=== PATIENT | male | born 1955 | race Caucasian/White ===

== ENCOUNTER 2017-12-29 03:39 | Inpatient (IN) | payer OTHER ==
[2017-12-25 14:08] VITALS: BP 136/87
[2017-12-25 15:35] LABS: BILIRUBIN 1+ (NEGATIVE); BLOOD NEGATIVE (NEGATIVE); CLARITY CLEAR (CLEAR); COLOR YELLOW (YELLOW); GLUCOSE NEGATIVE (NEGATIVE); KETONE TRACE (NEGATIVE); LEUKO ESTERASE NEGATIVE (NEGATIVE); NITRITE NEGATIVE (NEGATIVE); PH 5.5 (5.0-9.0); SPECIFIC GRAVITY >= 1.030 (1.005-1.030); UROBILINOGEN 0.2 E.U./dl (0.2-1.0)
[2017-12-25 15:39] LABS: BASO % 0.3 % (0.0-1.0); EOS # 0.1 10*3/uL (0.0-0.4); EOS % 0.9 % (1.0-4.0); HEMATOCRIT 46.2 % (42.0-52.0); HEMOGLOBIN 14.8 g/dl (14.0-18.0); LYMPH # 1.1 10*3/uL (1.3-4.4); LYMPH % 13.9 % (27.0-41.0); MEAN CELL VOLUME 90.4 fl (80.0-94.0); MONO # 0.8 10*3/uL (0.1-1.0); MONO % 10.5 % (3.0-9.0); NEUT # 5.7 10*3/uL (2.3-7.9); NEUT % 74.1 % (47.0-73.0); PLATELET COUNT AUTOMATED 201 10*3/uL (130-400); RED BLOOD COUNT 5.11 10*6/uL (4.50-5.90); RED CELL DISTRI WIDTH 15.2 % (0-14.5); WHITE BLOOD COUNT 7.7 10*3/uL (4.8-10.8)
[2017-12-25 15:47] LABS: BACTERIA TRACE
[2017-12-25 16:07] LABS: ALBUMIN 3.8 gm/dl (3.1-4.5); ALKALINE PHOSPHATASE 81 U/L (45-117); BILIRUBIN, DIRECT 0.2 mg/dL (0.0-0.2); BUN 18 mg/dl (7-24); CHLORIDE 108 mmol/L (98-107); SGOT/AST 23 IU/L (3-35); SGPT/ALT 34 U/L (12-78); SODIUM 142 mmol/L (136-145); TOTAL PROTEIN 7.1 gm/dL (6.4-8.2)
[2017-12-25 16:10] LABS: ACT PARTIAL THROMBO TIME 22.3 SECONDS (20.8-31.5)
[2017-12-26 10:56] LABS: CEA 2.4 ng/mL
[~2017-12-29] VITALS: Ht 185.4 cm; Wt 111.3 kg
[2017-12-29] VITALS (8 sets, daily range): BP systolic 97–124; BP diastolic 60–90
--- NOTE | ~2017-12-29 | O ---
[place], [place] OPERATIVE NOTE NAME: SIRIA GAGE [facility] #: [id number] UNIT #: [id number] ROOM: [place] [address] DOCTOR: LESTER PEPE MD BIRTHDATE: [birth year] DOS: 12/29/2017 PREOPERATIVE DIAGNOSIS: Sigmoid mass. POSTOPERATIVE DIAGNOSIS: Sigmoid mass. PROCEDURE: Partial sigmoid colectomy with intraoperative colonoscopy. SURGEON: Lester Pepe MD [employer] COORDINATOR: BHAVNA. ANESTHESIA: General with endotracheal intubation. INDICATIONS: This is a 62-year-old gentleman, who is here today for the procedure, this procedure is indicated for a large polyp that could not be removed endoscopically and a biopsy, which showed a high-grade dysplasia and therefore, it was decided to take the patient for the above-mentioned procedure. The procedure and its complications were explained to the patient in detail preoperatively. Complications that were discussed included, but were not limited to bleeding, infection, hematoma/seroma/abscess formation, anastomotic leak, anastomotic breakdown, damage to lying vital structures, inadvertent injury to surrounding vital structures, incisional hernia formation and prolonged abdominal pain. He agreed to proceed. DESCRIPTION OF PROCEDURE: After identifying the patient, the patient was brought to the operating suite and laid in the supine position. After induction of general anesthesia, the patient was placed in stirrups and the abdomen was painted and draped in the usual sterile fashion. Prior to starting the procedure and sigmoidoscopy was performed, which showed that the mass in question was at approximately 40 cm from the anal verge. At this point, the scope was withdrawn and the patient was placed in an appropriate position and the parts were then painted and draped in the usual sterile fashion. A midline incision was made. Skin and the subcutaneous tissue were incised in the line of the incision. The fascia was incised as well and the peritoneum was opened. The mass was identified by the tattoo that was seen and that was placed by the public utilities sales representative in question. At this point, the distal approximately 5 cm distal to the mass that was palpated, the sigmoid colon was divided with the help of a transverse stapler. Thereafter, the mesentery of the bowel needed to be resected, was taken down with the help of LigaSure device. Approximately 5 cm proximal to the mass, the colon was divided and the mesenteric dissection was completed with the help of LigaSure device and the specimen was removed, it was sent for histopathological diagnosis. Thereafter, hemostasis was confirmed, the anastomosis between the proximal and the distal ends were performed with the help of a LEONARDO stapler as well as a TA stapler. Sigmoidoscopy was then performed in order to visualize the anastomosis. This was found to be slightly narrow and therefore, the anastomosis was taken down and hand sewn anastomosis was performed with the help of 3-0 silk in interrupted fashion for the posterior seromuscular layer with the help of 3-0 PDS in a running fashion ([place]-type suturing). The anterior wall was also reinforced with the help of 3-0 silk in a [place], [place] OPERATIVE NOTE NAME: SIRIA GAGE UNIT #: [id number] ROOM: [place] [address] DOCTOR: LESTER PEPE MD BIRTHDATE: [birth year] running fashion. At this point, the scope was reintroduced and the anastomosis was visualized and it was found to be within normal limits with no bleeding. It was injected and there was no leak that could be identified after the placement of the anterior seromuscular suture. At this point, the omentum was brought down and placed over the anastomosis. Approximately 2 liters of saline was used for irrigation and after the irrigational fluid was sucked away, the fascia was approximated with the help of looped PDS in a running fashion. The skin edges and the subcutaneous tissue was irrigated with saline and approximated with the help of efra. Abdominal binder was placed on top of the dressing. The patient was then extubated uneventfully and brought back to the recovery room in stable fashion. There were no complications. Dr. Lester Pepe, the attending surgeon, was present throughout the operating case. Lester Pepe MD CM:OPRECORD:OPERATIVE NOTE [id number] LESTER PEPE MD 12/29/17 1703 interface
--- NOTE | ~2017-12-29 | PR ---
[place], [place] PROGRESS NOTE [id number] UN[facility] #: [id number] ROOM: 520 DOCTOR: IDRIS RODRIGUEZ MD BIRTHDATE: [birth year] DOS: SUBJECTIVE: The patient has been admitted to hospital with colon cancer and has resection of the sigmoid colon and he is recovering very satisfactorily. He is able to eat. He had bowel movement and no problem in passing urine and ambulating well. According to Dr. Pepe, the patient is doing good and he is being discharged today and he will be followed up in the office by Dr. Pepe and Dr. Rios. OBJECTIVE: HEART: Regular. CHEST: Clear. ABDOMEN: Soft. IDRIS RODRIGUEZ MD CM:PNTRANS [id number] IDRIS RODRIGUEZ MD 01/03/18 1446 interface
--- NOTE | ~2017-12-29 | EKG ---
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
[~2017-12-29 03:39] MED LIST: ALLOPURINOL300 MG PO; AMOXICILLIN500 M1 PO; AMOXICILLIN500 MG PO; ANTIVERT/2525 MG PO; ANTIVERT25 MG PO; ASPIRIN81 M1 PO; BIAXIN500 MG PO; CLARITIN10 MG PO; FLONASE 0.05% 121 EA NAS; LEVAQUIN750 MG PO; LIPITOR10 MG PO; NEXIUM40 MG PO; PREDNISONE20 MG PO; SYMB160 INH; TERAZOSIN HYDROC5 MG PO; VIBRAMYCIN100 MG PO; ZESTRIL20 MG PO; ZYRTEC10 MG PO
[2017-12-30] VITALS (18 sets, daily range): BP systolic 92–133; BP diastolic 57–80
[2017-12-30 05:02] LABS: ALKALINE PHOSPHATASE 56 U/L (45-117); BUN 20 mg/dl (7-24); CHLORIDE 108 mmol/L (98-107); CREATININE 1.33 mg/dL (0.70-1.30); POTASSIUM 4.3 mmol/L (3.5-5.1); SGOT/AST 16 IU/L (3-35); SGPT/ALT 26 U/L (12-78); SODIUM 142 mmol/L (136-145); TOTAL PROTEIN 5.6 gm/dL (6.4-8.2)
[2017-12-30 05:45] LABS: BASO % 0.1 % (0.0-1.0); HEMOGLOBIN 13.1 g/dl (14.0-18.0); LYMPH % 6.6 % (27.0-41.0); MEAN CELL VOLUME 90.7 fl (80.0-94.0); MEAN PLATELET VOLUME 10.5 fl (9.6-12.3); MONO # 1.2 10*3/uL (0.1-1.0); MONO % 7.7 % (3.0-9.0); NEUT # 13.1 10*3/uL (2.3-7.9); NEUT % 85.1 % (47.0-73.0); PLATELET COUNT AUTOMATED 182 10*3/uL (130-400); RED BLOOD COUNT 4.52 10*6/uL (4.50-5.90); RED CELL DISTRI WIDTH 15.2 % (0-14.5); WHITE BLOOD COUNT 15.4 10*3/uL (4.8-10.8)
[2017-12-31] VITALS (24 sets, daily range): BP systolic 91–135; BP diastolic 43–80
[2017-12-31 07:11] LABS: BASO % 0.2 % (0.0-1.0); EOS % 0.2 % (1.0-4.0); HEMATOCRIT 39.2 % (42.0-52.0); HEMOGLOBIN 12.8 g/dl (14.0-18.0); LYMPH # 1.1 10*3/uL (1.3-4.4); MEAN CELL VOLUME 89.5 fl (80.0-94.0); MEAN CORPUSCULAR HGB 29.2 pg (27.0-31.0); MEAN CORPUSCULAR HGB CONC 32.7 g/dl (33.0-37.0); MEAN PLATELET VOLUME 9.6 fl (9.6-12.3); MONO # 1.1 10*3/uL (0.1-1.0); MONO % 10.1 % (3.0-9.0); NEUT # 8.9 10*3/uL (2.3-7.9); NEUT % 78.9 % (47.0-73.0); PLATELET COUNT AUTOMATED 166 10*3/uL (130-400); RED BLOOD COUNT 4.38 10*6/uL (4.50-5.90); RED CELL DISTRI WIDTH 15.3 % (0-14.5); WHITE BLOOD COUNT 11.3 10*3/uL (4.8-10.8)
[2017-12-31 07:27] LABS: ALBUMIN 2.8 gm/dl (3.1-4.5); ALKALINE PHOSPHATASE 62 U/L (45-117); BUN 11 mg/dl (7-24); CHLORIDE 110 mmol/L (98-107); CREATININE 1.03 mg/dL (0.70-1.30); SGOT/AST 20 IU/L (3-35); SGPT/ALT 21 U/L (12-78); SODIUM 144 mmol/L (136-145); TOTAL PROTEIN 5.7 gm/dL (6.4-8.2)
[2018-01-01] VITALS (11 sets, daily range): BP systolic 117–149; BP diastolic 72–89
[2018-01-01 04:50] LABS: ALBUMIN 2.6 gm/dl (3.1-4.5); ALKALINE PHOSPHATASE 65 U/L (45-117); BUN 10 mg/dl (7-24); CHLORIDE 109 mmol/L (98-107); CREATININE 1.05 mg/dL (0.70-1.30); POTASSIUM 3.8 mmol/L (3.5-5.1); SGOT/AST 20 IU/L (3-35); SGPT/ALT 22 U/L (12-78); SODIUM 143 mmol/L (136-145); TOTAL PROTEIN 5.6 gm/dL (6.4-8.2)
[2018-01-01 06:19] LABS: BASO % 0.3 % (0.0-1.0); EOS # 0.1 10*3/uL (0.0-0.4); EOS % 0.7 % (1.0-4.0); HEMATOCRIT 38.4 % (42.0-52.0); HEMOGLOBIN 12.2 g/dl (14.0-18.0); LYMPH # 1.4 10*3/uL (1.3-4.4); MEAN CELL VOLUME 89.9 fl (80.0-94.0); MEAN CORPUSCULAR HGB 28.6 pg (27.0-31.0); MEAN CORPUSCULAR HGB CONC 31.8 g/dl (33.0-37.0); MEAN PLATELET VOLUME 10.6 fl (9.6-12.3); MONO # 1.3 10*3/uL (0.1-1.0); MONO % 13.4 % (3.0-9.0); NEUT # 6.9 10*3/uL (2.3-7.9); NEUT % 71.3 % (47.0-73.0); PLATELET COUNT AUTOMATED 184 10*3/uL (130-400); RED BLOOD COUNT 4.27 10*6/uL (4.50-5.90); RED CELL DISTRI WIDTH 15.3 % (0-14.5); WHITE BLOOD COUNT 9.6 10*3/uL (4.8-10.8)
[2018-01-02] VITALS: BP 141/91
[2018-01-02 06:49] LABS: BASO # 0.1 10*3/uL (0.0-0.1); BASO % 0.6 % (0.0-1.0); EOS # 0.2 10*3/uL (0.0-0.4); EOS % 2.1 % (1.0-4.0); HEMATOCRIT 40.8 % (42.0-52.0); HEMOGLOBIN 13.1 g/dl (14.0-18.0); LYMPH # 1.2 10*3/uL (1.3-4.4); LYMPH % 13.6 % (27.0-41.0); MEAN CELL VOLUME 89.7 fl (80.0-94.0); MEAN CORPUSCULAR HGB 28.8 pg (27.0-31.0); MEAN CORPUSCULAR HGB CONC 32.1 g/dl (33.0-37.0); MEAN PLATELET VOLUME 10.1 fl (9.6-12.3); MONO # 1.1 10*3/uL (0.1-1.0); MONO % 12.1 % (3.0-9.0); NEUT # 6.3 10*3/uL (2.3-7.9); NEUT % 71.2 % (47.0-73.0); PLATELET COUNT AUTOMATED 211 10*3/uL (130-400); RED BLOOD COUNT 4.55 10*6/uL (4.50-5.90); RED CELL DISTRI WIDTH 14.9 % (0-14.5); WHITE BLOOD COUNT 8.9 10*3/uL (4.8-10.8)
[2018-01-02 08:00] VITALS: BP 129/79
[2018-01-02 12:00] VITALS: BP 127/79
[2018-01-02 16:00] VITALS: BP 103/72; BP 127/68
[2018-01-02 20:00] VITALS: BP 115/66
[2018-01-03 00:56] VITALS: BP 138/88
[2018-01-03 08:00] VITALS: BP 105/72; BP 132/88
== END 2018-01-03 10:04 | disposition home health service (06) | DRG 330 ==
LOC: SDC 03:39 → ICCU 11:19 → SDC 11:30 → ICCU 12-30 20:11 → 5E 01-01 10:03
PROVIDERS: Surgery
PROC: 0DJD8ZZ Inspection of Lower Intestinal Tract, Via Natural or Artificial Opening Endoscopic (ICD-10-PCS; principal; 2017-12-29)
PROC: 0DBN0ZZ Excision of Sigmoid Colon, Open Approach (ICD-10-PCS; principal; 2017-12-29)
DX: C18.7 Malignant neoplasm of sigmoid colon (principal); K56.7 Ileus, unspecified

== ENCOUNTER 2018-01-08 20:34 | Inpatient (IN) | payer OTHER ==
[~2018-01-08] VITALS: Ht 185.4 cm; Wt 112.1 kg
--- NOTE | ~2018-01-08 | PR ---
[place], [place] PROGRESS NOTE NAME: SIRIA GAGE UNIT #: [id number] ROOM: [facility] DOCTOR: AMERICA BRIONES MD BIRTHDATE: [birth year] DOS: 01/22/2018 PULMONARY PROGRESS NOTE SUBJECTIVE: The patient is seen and examined on [id number] encounter. History confirmed and physical examination performed. Labs were reviewed. Assessment and management of today's note was partially completed. Note done by the certified medical records coder was approved as well. The patient has been noted comfortably resting on his bed. He has been ambulating. Physical therapy was continued. The patient was still getting TPN administration as well. He has not been noted any symptoms of chest pain or coughing. Denies any sputum expectoration. OBJECTIVE: VITAL SIGNS: Which were recorded in the last 24 hours shows the temperature noted normal, respirations 17, heart rate of 90, blood pressure 118/76. Pulse oxygen saturation on room air was 95% saturation. HEENT: Shows head was atraumatic, eyes nonicterus. NECK: Supple. CARDIOVASCULAR: S1 and S2 were audible. LUNGS: Noted clear. ABDOMEN: Soft, nontender. EXTREMITIES: Without any acute edema. LABORATORY DATA: BMP noted as BUN 32, creatinine was normal. IMPRESSION: 1. The patient with resolving respiratory failure. 2. Acute peritonitis, which has been improving with current medical management with intravenous antibiotic with anaerobic infection, methicillin-resistant Staphylococcus aureus. 3. Resolution of methicillin-resistant Staphylococcus aureus bacteremia. 4. Resolving acute postoperative respiratory failure. PLAN OF MANAGEMENT: Titrate oxygen supplementation, maintain 92% or greater. All other previous treatment postoperatively and extubation will be continued. Bronchodilators as needed and other therapies. [place], [place] PROGRESS NOTE NAME: SIRIA GAGE UNIT #: [id number] ROOM: [facility] DOCTOR: AMERIAC BRIONES MD BIRTHDATE: [birth year] AMERICA MARTINEZ MD CM:PNTRANS 2 AMERICA BARAJAS MD 01/22/18 0851 interface
--- NOTE | ~2018-01-08 | PR ---
[place], [place] PROGRESS NOTE [facility] [id number] UNIT #: [id number] ROOM: [facility] DOCTOR: JUAN BARAJAS MD,AMERICA BIRTHDATE: [birth year] DOS: 01/19/2018 PULMONARY, CRITICAL CARE EVALUATION AND MANAGEMENT SUBJECTIVE: The patient noted comfortable at this time, resting on mechanical ventilator, comfortable sedation has been discontinued. The patient was noted awake and alert, tolerating CPAP, mode of mechanical ventilation of the patient in the last approximately 24 hours. He has been noted with decent tidal volume. The respiratory rate less than 20 as well. He does follow vocal commands. The patient noted fully awake and alert. Not been noted any acute hemodynamic instability and also noted afebrile. ANTIBIOTIC: Patient was continued intravenously. He has been continued on intravenous TPN for the nutrition support as well. The patient has not been noted any other abnormal symptoms in the last 24 hours. Ventilator bundle management was followed. OBJECTIVE: VITAL SIGNS: Blood pressure noted as 85-120/75, pulse oxygen saturation of the patient recorded as 98% saturation, 30% oxygen. Respiratory rate range between 30 and 50. The temperature 99, but did have a normal temperature. Heart rate ranged between 95-77. HEENT: Examination shows chronic obesity. Head was atraumatic. Eyes nonicterus. NECK: Supple. The patient remained orally intubated. NG tube is in place, which has been still connected to low intermittent suction. CARDIOVASCULAR: S1, S2 is audible. LUNGS: The patient was noted without any wheeze or crackles. ABDOMEN: Bowel sounds noted slow for this patient, postoperative changes. EXTREMITIES: With mild edema. MUSCULOSKELETAL: Without any acute deformities. CENTRAL NERVOUS SYSTEM: The patient's cranial nerves 2-12 cannot be examined by the mental status was noted completely normal. LABORATORY DATA: CBC this morning WBC count 16.1, hemoglobin 10.8, hematocrit 32.9, platelet count 412,000, 88% neutrophils. Arterial blood gas CPAP 5, pressure support of 10, pH of 7.52, pCO2 of 37, pO2 of 88.3 with 30% oxygen use. IMPRESSION: 1. The patient who has been currently noted with ongoing acute respiratory failure at the present time. Currently, remains on mechanical ventilator, tolerating the BiPAP for the weaning purposes in the last 24 hours adequately. 2. Moderate obesity. 3. Status post resection of the sigmoid colon on the previous admission. Currently wound dehiscence with peritonitis with MRSA, currently treated adequately with the antibiotics. 4. Resolution bacteremia. The patient also noted with repeat culture as MRSA. PLAN OF MANAGEMENT: Continuation of the oxygen supplementation, bronchodilators. The patient will be liberated from mechanical ventilator. [place], [place] PROGRESS NOTE NAME: SIRIA GAGE UNIT #: [id number] ROOM: [facility] DOCTOR: AMERICA BRIONES MD BIRTHDATE: [birth year] Continue diuretic therapy. Electrolytes, the patient will be obtained with the TPN to make further adjustment. Chest x-ray of the patient will be obtained as necessary. Continue other supportive therapy, plan of management, care plan for the patient as previously. Usual care with additional treatment changes will be ordered based on progression of the illness. Total time taken for pulmonary critical care evaluation and management today was 36 minutes. AMERICA MARTINEZ MD CM:PNTRANS [id number] AMERICA BARAJAS MD 01/19/18 231 interface
--- NOTE | ~2018-01-08 | PR ---
[place], [place] PROGRESS NOTE NAME: SIRIA GAGE UNIT #: [id number] ROOM: [facility] DOCTOR: LETTY CRUZ MD BIRTHDATE: [birth year] DOS: 01/23/2018 SUBJECTIVE: The patient was seen at his bedside today 01/23/2018 for followup of SVT and bacteremia with Staphylococcus aureus. The patient has transitioned from liquids to regular diet and states that the food is going down well. He still is being treated for his recent wound dehiscence. Blood cultures from 01/13/2018 and 01/16/2018 remain sterile. PHYSICAL EXAMINATION: VITAL SIGNS: Pulse is 110 and regular, blood pressure is 144/85. He is afebrile. NECK: Supple. He has no jugular distention. Carotids are full. LUNGS: Respirations are unlabored. Chest is clear anteriorly and laterally. HEART: Has a regular rhythm with an S4 gallop, but no S3 or murmur. ABDOMEN: Bound and I did not take down his dressings, but he does have active bowel sounds. EXTREMITIES: Showed no edema. LABORATORY DATA: Hemoglobin is 10.1, white count 17,500, platelet count 334,000. Sodium is 139, potassium 4.0, BUN 28, creatinine 0.7. IMPRESSION: 1. Paroxysmal supraventricular tachycardia and atrial flutter earlier this admission without further recurrences documented. 2. Status post partial colectomy with subsequent dehiscence and reoperation for repair. 3. Postoperative respiratory failure. The patient required ventilatory support, but tolerated weaning and removal from the ventilator as of 01/19/2018. 4. Prolonged postoperative ileus, which appears to be resolving. 5. History of hypertension. 6. Staphylococcal bacteremia and wound infection. PLAN: I will switch him from IV to oral metoprolol today. If he tolerates this with good control of his rhythms, we will probably sign off shortly thereafter. I do note that his CHADS-VASc score is 1 and he is at low risk for future cardioembolic events so long-term anticoagulation is not being provided. I thank the hospitalist physicians and Dr. Pepe for asking our advice regarding the patient's care. [place], [place] PROGRESS NOTE NAME: SIRIA GAGE UNIT #: [id number] ROOM: [facility] DOCTOR: LETTY CRUZ MD BIRTHDATE: [birth year] LETTY CRUZ MD CM:PNTRANS 1230 1428 LETTY CRUZ MD 01/23/18 1730 interface
--- NOTE | ~2018-01-08 | EKG ---
[place], [place] ELECTROCARDIOGRAM REPORT NAME: SIRIA GAGE UNIT #: [id number] ROOM: [facility] DOCTOR: DARIANA DRAFT REPORT BIRTHDATE: [birth year] [facility] Test Date: 2018-01-12 Test Time: 12:34:31 Pat Name: SIRIA GAGE Department: Room: 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: EDDIE : 1955 Requested By: JUAN KEVIN Order Number: [id number] Reading MD: Lorraine Major MD Measurements Intervals [place] Rate: 112 P: 22 MO: 143 QRS: 38 QRSD: 84 T: 48 QT: 371 QTc: 507 Interpretive Statements Sinus arrhythmia Multiple premature complexes, vent \T\ supraven Probable left atrial enlargement Low voltage, extremity leads Prolonged QT interval Baseline wander in lead(s) V4 Compared to ECG 12/25/2017 15:13:18 Prolonged QTc interval now present Sinus rhythm no longer present Electronically Signed On 01-14-2018 11:57:13 PDT by Lorraine Major MD CM:EKGRPT:ELECTROCARDIOGRAM REPORT 1234 1157 JUAN COATS DRAFT REPORT JUAN KEVIN DO
--- NOTE | ~2018-01-08 | PR ---
[place], [place] PROGRESS NOTE NAME: SIRIA GAGE UNIT #: [id number] ROOM: 516 DOCTOR: MONICA MATA MD BIRTHDATE: [birth year] DOS: 01/14/2018 REASON FOR VISIT: The patient with SVT. HISTORY OF PRESENT ILLNESS: The patient underwent emergent surgery due to wound dehiscence. The patient was on ventilator and sedated, hence review of systems is limited. REVIEW OF SYSTEMS: The patient is on ventilator, review of systems is limited. RHYTHM STRIPS: The patient is in sinus rhythm, sinus tachycardia. OBJECTIVE: INITIAL VITAL SIGNS: Reviewed. Blood pressure 137/79, pulse 122, respiratory rate 20. GENERAL: The patient is on ventilator, sedated. HEAD AND NECK: Limited. CHEST: Symmetrical. LUNGS: A few scattered rhonchi. HEART: Regular rhythm. No S3. The patient is tachycardic, grade 1/6 systolic murmur. ABDOMEN: Bowel sounds are diminished. EXTREMITIES: Showed trace edema. Distal pulses are palpable. SKIN: Warm and dry. No cyanosis. No clubbing. RECTAL: Deferred. MEDICATIONS: Reviewed. LABORATORY DATA: Reviewed. Hemoglobin 12.8. Potassium 3.4. IMPRESSION: 1. Paroxysmal Supraventricular tachycardia, atrial flutter versus atrial tachycardia, CHADS2-VASc score of 1 with HAS-BLED score of 2. The patient is on baby aspirin. No further recurrence. 2. Borderline elevation of troponin secondary to his tachycardia. The patient is asymptomatic. 3. Anemia. 4. Status post surgery for wound dehiscence, with history of ileus. 5. History of partial sigmoidectomy for aplastic polyp. 6. Hypertension. 7. Mild hypokalemia, replace his potassium. 8. Non-morbid obesity. RECOMMENDATIONS: 1. Continue current medications, resume his p.o. medication when he is stable, meanwhile give metoprolol 5 mg IV q. 12 hours monitor his heart rate and blood pressures. 2. There is no family at bedside at the time of my examination. [place], [place] PROGRESS NOTE NAME: SIRIA GAGE UNIT #: [id number] ROOM: 516 DOCTOR: MONICA MATA MD BIRTHDATE: [birth year] MONICA MATA MD CM:CA [id number] MONICA MATA MD 03/09/18 0812 interface
--- NOTE | ~2018-01-08 | PR ---
[place], [place] PROGRESS NOTE NAME: [facility]AGE [facility] [id number] UNIT #: [id number] ROOM: 516 DOCTOR: JUVE CALERO DO BIRTHDATE: [birth year] DOS: 01/28/2018 SUBJECTIVE: The patient was seen. He denies any fevers, chills, chest pain, shortness of breath, nausea, vomiting, abdominal pain or changes in bowel or bladder habits. He reports that his abdominal discomfort from yesterday has since resolved. OBJECTIVE: VITAL SIGNS: Show temperature at 98.0 degrees Fahrenheit, heart rate 77, respiratory rate 22, blood pressure 113/66, pulse oximetry 94% on room air. GENERAL APPEARANCE: The patient was awake, alert, responsive, cooperative and in no acute distress. HEENT: Head was normocephalic and atraumatic. No lesions or ulcerations were noted to the eyes. NECK: Trachea appears midline. HEART: Positive S1, S2 sounds were heard. The bilateral lower extremities were without pitting edema. PULMONARY: The lungs were without any rhonchi, rales or wheezing. ABDOMEN: Bowel sounds were present. The abdomen was soft. EXTREMITIES: Bilateral lower extremities were without pitting edema. No clubbing, cyanosis or erythema was noted. LABORATORY DATA: CBC from today shows white count at 11.6, hemoglobin 9.1, hematocrit 27.5, platelets at 632. Chemistries from today show sodium at 140, potassium 3.3, chloride 106, bicarbonate 25, BUN 15, creatinine 0.87, glucose 90, calcium 8.4. MICROBIOLOGY: Final sputum cultures showed growth of normal jaimee with a moderate amount of Pseudomonas aeruginosa and a light amount of Klebsiella pneumoniae. IMPRESSION: 1. Airway colonization with gram-negative bacilli. 2. Acute respiratory failure since resolved. 3. Methicillin-resistant Staphylococcus aureus peritonitis, resolved. 4. Methicillin-resistant Staphylococcus aureus bacteremia, resolved. 5. Wound dehiscence status post surgical repair on 01/14/2018. 6. Obesity. 7. Normocytic anemia. 8. Thrombocytosis. 9. Lymphopenia. 10. Hypokalemia. PLAN OF MANAGEMENT: The patient is currently on DuoNeb treatments 3 times a day. He is still being followed by multiple services including the General Surgery Service and the Infectious Disease Service. Otherwise, he remained stable. No changes need to be made at this time from a pulmonary standpoint, the patient has now received authorization for discharge to a nursing facility and is likely to be discharged today. [place], [place] PROGRESS NOTE NAME: SIRIA GAGE UNIT #: [id number] ROOM: 6 DOCTOR: JUVE CALERO DO BIRTHDATE: [birth year] Juve Calero DO AMERICA MARTINEZ MD CM:CA [id number] 1157 JUVE CALERO DO 01/28/18 1155 interface
--- NOTE | ~2018-01-08 | PR ---
[place], [place] PROGRESS NOTE NAME: SIRIA GAGE UNIT #: [id number] ROOM: 516 DOCTOR: LETTY CRUZ MD BIRTHDATE: [birth year] DOS: 01/26/2018 SUBJECTIVE: The patient was seen at his bedside today, 01/26/2018, for followup of SVT and staphylococcal bacteremia. He is a 62-year-old man who initially presented with an abdominal dehiscence after a partial colectomy for polyp disease. He did develop respiratory failure and while he was being managed, blood cultures did come back positive on 1 occasion for Staphylococcus aureus (MRSA). He has been hemodynamically stable for the last several days and has not had any recent SVT. Blood cultures have remained sterile after the first positive cultures. He never did not show any sign of embolic or immunologic phenomena to suggest endocarditis. PHYSICAL EXAMINATION: VITAL SIGNS: His pulse is 86 and regular, blood pressure is 117/68. He is afebrile. GENERAL: He is awake, alert, oriented and appears much better than the previous week. LABORATORY DATA: Hemoglobin is 9.1, white count 14,300, platelet count 539,000. Sodium 140, potassium 3.3, chloride 106, CO2 of 25, BUN 22, creatinine 0.86. IMPRESSION: 1. Paroxysmal supraventricular tachycardia and atrial flutter earlier this admission without further recurrences documented. 2. Status post partial colectomy with subsequent dehiscence and reoperation for repair. 3. Postoperative respiratory failure. The patient was weaned from the ventilator on 01/19/2018. 4. Prolonged postoperative ileus, which has resolved. 5. History of hypertension. 6. Staph aureus bacteremia (methicillin-resistant Staphylococcus aureus) with wound infection. PLAN: The patient is stable on oral cardiac medications. His [id number] score is 1 and he is at low risk for future cardioembolic events, so long-term anticoagulation is not being considered. We will continue to follow him intermittently. I thank the hospitalist physicians and Dr. Pepe for asking our advice regarding his care. [place], [place] PROGRESS NOTE NAME: SIRIA GAGE UNIT #: [id number] ROOM: 516 DOCTOR: LETTY CRUZ MD BIRTHDATE: [birth year] LETTY CRUZ MD CM:PNEDUAR [id number] LETTY CRUZ MD 01/27/18 0501 interface
--- NOTE | ~2018-01-08 | PR ---
[place], [place] PROGRESS NOTE NAME: SIRIA GAGE UNIT #: [id number] ROOM: 516 DOCTOR: AMERICA BRIONES MD BIRTHDATE: [birth year] DOS: 01/27/2018 SUBJECTIVE: The patient noted comfortable at this time, resting on the bed. The patient has been seen and examined in [id number] encounter, history was confirmed. Physical examination performed. Labs reviewed. Note done by the medical receptionist medical assistant was approved by the assessment and management were personally completed. The patient denies symptoms of coughing, shortness of breath, chest pain. Appetite was noted better. Complaining of some cramping pain occasionally in the mid epigastric area. OBJECTIVE: VITAL SIGNS: The patient showed normal temperature, respiratory rate 18, heart rate 79, blood pressure 110/75. Pulse oxygen saturation on room air 97% saturation. HEENT: Examination shows head was atraumatic. Eyes nonicterus. NECK: Supple. CARDIOVASCULAR: S1, S2 audible. LUNGS: The patient noted without any wheezing or crackles. ABDOMEN: Soft, nontender. Bowel sounds present. EXTREMITIES: Without any acute edema. LABORATORY DATA: 1. Culture of the sputum noted moderate growth of gram-negative bacilli, pending identification and sensitivity. IMPRESSION: 1. Colonization of the airway with moderate gram-negative bacilli at this time. 2. Stable respiratory status with marked improvement acute respiratory failure. Continue. 3. Status post wound dehiscence and management and also peritonitis with MRSA and MRSA bacteremia. PLAN OF TREATMENT: No changes from the pulmonary standpoint. Continue the patient's current therapy, plan of care. The patient at this time without any changes in the treatment. Usual care, other supportive plan of therapy to be continued. Additional treatment changes will be made based on progression of the illness. [place], [place] PROGRESS NOTE NAME: SIRAI GAGE UNIT #: [id number] ROOM: 516 DOCTOR: AMERICA BRIONES MD BIRTHDATE: [birth year] AMERICA MARTINEZ MD CM:PNTRANS 1211 1403 AMERICA BARAJAS MD 01/27/18 1400 interface
--- NOTE | ~2018-01-08 | CON ---
[place], [place] REPORT OF CONSULTATION NAME: SIRIA GAGE [facility] #: [id number] UNIT #: [id number] ROOM: 516 DOCTOR: AMERICA BRIONES MD BIRTHDATE: [birth year] DOS: 01/15/2018 CONSULTATION REQUESTED BY: Dr. Avelino Rios for acute respiratory failure. REASON FOR CONSULTATION: Acute postoperative respiratory failure. HISTORY OF PRESENT ILLNESS: This is a 61-year-old white male who has been recently admitted to the hospital noted dysplastic polyp in the sigmoid colon. The patient underwent a sigmoid colectomy that was done about Dr. Pepe on his last admission. Surgery was completed on 12/29/2017. The surgery was completed and did not require any colostomy. No other intervention. After resolution of the symptoms, postoperatively uneventful. The patient was discharged home. The patient presented back to the hospital after discharge from 01/03/2018 and 01/09/2018 in the Emergency Room. He presented to the hospital, as he has been noted symptoms of nausea, vomiting, progressive abdominal distention. The patient was also noted constipation, treated in the hospital for that with partial improvement, later noted with worsening of the GI symptoms, nausea and vomiting. The patient was assessed and noted abdominal wound dehiscence. He was taken to the OR yesterday for the exploration. The surgery was completed with the patient by Dr. Pepe on 01/09/2018 for the dehiscence, about 100 mL blood loss was noted was done and cleaning of the wound and was continued on mechanical ventilation for respiratory failure. He has been noted with abdominal binder in place, still moderate distention of the abdomen. The patient was transferred to the Intensive Care Unit for further medical management. NG tube noted large volume of fecal material and green material, which was suctioned of NG tube about 3 liters close per nursing staff. The patient remains on mechanical ventilator, sedated with intravenous Diprivan and with the use of the intravenous Versed. He has been noted with normal mental status, sedation vacation. He does not require any vasopressor therapy at the present time and continue to be sedated this morning of assessment. His oxygen saturation was noted with gradual improvement, was noted thickening oxygen requirement postoperatively, as the patient was admitted to the Intensive Care Unit after 70% oxygen. Oxygen requirement has been decreased to 50% oxygen. The patient was continued on assist control, volume control, mechanical ventilation, tidal volume about 46 mL/kg for bodyweight to be switched from assist control, volume control for 700 mL to 550 mL of tidal volume administration PEEP of 8. The patient was also given one dose of intravenous Lasix, resulting in adequate diuresis this morning. He has been receiving intravenous TPN. The patient remains otherwise n.p.o. Blood culture, which were taken on 01/12/2018 shows evidence of MRSA isolation in the blood cultures. Trabeculation of the systems cannot be completed for this since the patient intubated. All the other history is also continued documented with the medical record from the other automobile sales consultant's note, history and physical examination and also note which was done by the nursing staff. PAST MEDICAL HISTORY: Reported with: 1. History of chronic obstructive pulmonary disease. 2. BPH. 3. Gastroesophageal reflux. 4. Gout. [place], [place] REPORT OF CONSULTATION NAME: SIRIA GAGE UNIT #: [id number] ROOM: 516 DOCTOR: JUAN BARAJAS MD,AMERICA BIRTHDATE: [birth year] 5. Hyperlipidemia. 6. Essential hypertension. PAST SURGICAL HISTORY: Noted partial colectomy patient for dysplastic colon on 12/29/2017 and then repair of the dehiscence of the facial wound of the abdomen on 01/14/2018, also surgery for the fracture of the leg. SOCIAL HISTORY: As per brother of this patient, the patient is not , does not have any children, does have a history of alcohol use or illicit drug use or any tobacco use. FAMILY HISTORY: The patient's father at age of 74 years with complication of lung cancer. Mother at 71 years with complication of diabetes mellitus. HOME MEDICATIONS: Were noted use of Percocet, allopurinol, Nexium, aspirin, atorvastatin, Zestril, cetirizine, terazosin, Symbicort and loratadine. DRUG ALLERGIES: Noted with no known drug allergies. PHYSICAL EXAMINATION: GENERAL: This is a 62-year-old white male who is currently intubated on mechanical ventilator noted this morning. Height of 6 feet 1 inch, weight of 210 pounds, BMI 32.6. VITAL SIGNS: Temperature low grade at 100.6 degree Fahrenheit to normal temperature. The respiratory rate ranged between 20-18, heart rate of 94-92, blood pressure of 92/65-101/64. Pulse oxygen saturation noted on 50% oxygen 98% saturation at bedside assessment. HEENT: NG tube in place noted drainage connected to the intermittent suction canister. The patient is intubated orally, endotracheal tube #8. NECK: Supple with mild obesity. Head was atraumatic. Eyes nonicterus. CARDIOVASCULAR: S1, S2 is audible. LUNGS: Noted without any wheeze or crackle. ABDOMEN: Noted currently find is absent bowel sounds status post surgery of the abdomen. EXTREMITIES: Noted without any edema. Musculoskeletal examination was performed. SKIN: No skin lesions or rashes. CENTRAL NERVOUS SYSTEM: At this time appear to have a normal mental status. LABORATORY DATA: Arterial blood gas yesterday, assist control, volume control, mechanical ventilation, pH of 7.36, pCO2 of 27, pO2 93. The CBC that was done this morning that skin 11.5, hemoglobin 10.9, hematocrit 32.3, platelet of 116,000. CMP this morning, BUN normal, creatinine normal, potassium 3.1, albumin of 1.9. Blood culture from the 01/12/2018 was noted with evidence of MRSA. Chest x-ray that was done yesterday and this morning noted with small lung volumes, personally reviewed. Endotracheal tube was noted in the proximal right main stem bronchus after transfer, which was already corrected. The chest x-ray done this morning showed endotracheal tube about 4.5 cm above the stefania level with small lung volumes, noted with significant gas noted in the abdomen still for the patient under the diaphragm bilaterally from yesterday and this [place], [place] REPORT OF CONSULTATION NAME: SIRIA GAGE UNIT #: [id number] ROOM: 516 DOCTOR: JUAN BARAJAS MD,AMERICA BIRTHDATE: [birth year] morning x-rays. Blood culture on 01/08/2018 noted no bacterial growth. Final culture, which was taken 01/12/2018 was noted without any bacterial isolation. The CBC yesterday, WBC count 13,000, hemoglobin 12.9, platelet count 572,000. BMP was noted normal BUN and creatinine, potassium 3.4. Echocardiogram that was done on 01/13/2018 results were reviewed, which are dictated by Dr. Major. It showed trace mitral valve regurgitation. Left ventricular ejection fraction was noted as 65% normal with grade 1 diastolic dysfunction. IMPRESSION: 1. The patient will be currently admitted to the hospital was noted with wound dehiscence status post surgical repair. 2. Acute postoperative respiratory failure for nonthoracic surgery, abdominal surgery. Still noted with abdominal distention with decreased compliance of the chest wall as well. There was no evidence of acute pneumonia. 3. Recent resection of the sigmoid colon in the earlier part of this month. 4. Postoperative ileus most likely per Dr. Pepe. The patient has been currently assessed and managed by him for that. 5. Presumed history of chronic obstructive pulmonary disease, but there was no past tobacco use reported. Possibly bronchial asthma cannot be completely excluded. Cristina medication, which are prescribed to the patient is likely. 6. Hypokalemia, multifactorial including from diuretic therapy. PLAN OF MANAGEMENT: Additional ventilator changes were made at this time with the use of, continue assist control, volume control mechanical ventilation. Use of this clear way for the floor of the patient. The plateau pressure noted as 22, peak pressure noted about 24. The compliance was noted about 30, which have decreased most likely from the chest wall at current abdominal distention. The patient will be started on medication for the ventilator bundle management. The patient is not a candidate for mechanical ventilation on today's assessment because of the current decreased compliance and ongoing abdominal problem and distention and ileus; however, the oxygen supplementation has been decreased to 40% oxygen supplementation. Repeat arterial blood gas would be done in to reassess the improvement in the ventilatory status and oxygenation with that. DVT prophylaxis to be continued with the patient as well. Continued TPN. Try to keep the patient active, fluid balance, 20 mg of Lasix will be given daily, close monitor of BUN and creatinine, and continue supplementation of electrolytes. Continue nutrition support. Pain management. Bacteremia management for the MRSA with the form of intravenous vancomycin. Repeat cultures will be done tomorrow to reassess the resolution bacteremia from the periphery for this patient. Other additional treatment changes, continue to be made for this patient based on progression of the illness. The patient's assessment and management discussed in detail with the patient's brother and his [id number]. Total time in pulmonary critical management of today's note is 40 minutes. [place], [place] REPORT OF CONSULTATION NAME: SIRIA GAGE UNIT #: [id number] ROOM: 516 DOCTOR: JUAN BARAJAS MD,AMERICA BIRTHDATE: [birth year] AMERICA MARTINEZ MD CM:CONSTR:REPORT OF CONSULTATION 1404 02/02/18 0907 interface
--- NOTE | ~2018-01-08 | PR ---
[place], [place] PROGRESS NOTE NAME: SIRIA GAGE UNIT #: [id number] ROOM: 516 DOCTOR: AMERICA BRIONES MD BIRTHDATE: [birth year] DOS: 01/25/2018 SUBJECTIVE: The patient noted awake and alert this morning. He remains of oxygen. Denies symptoms of coughing, shortness of breath, or any chest pain. Denies symptoms of nausea or vomiting. Continued antibiotics. Chest x-ray was completed yesterday. OBJECTIVE: VITAL SIGNS: Reviewed, the patient noted the temperature remains normal after 100.2 degrees Fahrenheit yesterday. Respiratory rate ranged between 17-20. Heart rate of 80-71, blood pressure 114/72-123/80. The pulse oxygen saturation recorded as 91% to 92% saturation on room air. HEENT: Examination shows head was atraumatic. Eyes nonicterus. NECK: Supple. CARDIOVASCULAR: S1, S2 is audible. LUNGS: The patient was noted without any wheezes or crackles in the lower portion of the lungs. ABDOMEN: Soft, bowel sounds present. EXTREMITIES: No acute edema. LABORATORY DATA: Chest x-ray of yesterday, still noted large bowel gas pattern under the left hemidiaphragm, which was elevated. However, reduction in overall the air in the abdomen noted. Small linear atelectasis noted in the right and the left lower lobe, not consistent with pneumonia. IMPRESSION: The patient with a stable respiratory status noted at the present time. Resolution of low-grade fever. Leukocytosis noted yesterday, but there was no CBC done today. Small subsegmental atelectasis noted in the lower lobe with possibility of mucus impaction and not taking a deep breath. PLAN OF MANAGEMENT: No change in plan of care from a pulmonary standpoint. Continue monitoring the patient at this time without any changes. Usual care, other supportive therapy, plan of management, care plan. Usual therapies. [place], [place] PROGRESS NOTE NAME: SIRIA GAGE UNIT #: [id number] ROOM: 516 DOCTOR: AMERICA BRIONES MD BIRTHDATE: [birth year] AMERICA MARTINEZ MD CM:PNTRANS [id number] AMERICA BARAJAS MD 02/06/18 0806 interface
--- NOTE | ~2018-01-08 | PR ---
[place], [place] PROGRESS NOTE NAME: SIRIA GAGE UNIT #: [id number] ROOM: [facility] DOCTOR: AMERICA BRIONES MD BIRTHDATE: [birth year] DOS: 01/20/2018 PULMONARY ADDENDUM NOTE SUBJECTIVE: The patient independently seen and examined, [id number] encounter, history was confirmed. Physical examination performed. Labs reviewed. The assessment and management of the patient today's note was personally completed. Note done by the medical assistant float was approved as well. The patient has been successfully liberated from mechanical ventilator yesterday, currently noted oxygen supplementation cannula. NG tube in place. Noted fully awake and alert. Denies any symptoms of coughing, chest pain or sputum expectoration. Denies any abdominal pain. He has been noted to have bowel movements. Denies any pain of the lower extremity. Denies symptoms of headache or diplopia. General weakness and fatigue, was reported Remaining systems reviewed. They were noted all negative. OBJECTIVE: VITAL SIGNS: Normal temperature 99 degree Fahrenheit, respiratory 19-13, heart rate of 98-101, blood pressure 136/63-160/83. Pulse ox saturation on 2 liters nasal cannula 95% saturation. HEENT: An NG tube in place. Head was atraumatic. Eyes nonicterus. NECK: Supple. CARDIOVASCULAR: S1, S2 audible. LUNGS: The patient was noted without any wheezing or crackles. Breaths are noted decreased mildly in the lungs bilaterally. ABDOMEN: Soft, bowel sounds are present. EXTREMITIES: Without any acute edema. MUSCULOSKELETAL: Without any deformities. SKIN: No lesions or rashes. CENTRAL NERVOUS SYSTEM: Cranial nerves 2-12 fairly noted, intact. No gross focal deficit. LABORATORY DATA: The patient's CMP today; glucose 124, BUN 31, creatinine was normal. Albumin 1.7. CBC: WBC count 18.7, hemoglobin 10.8, hematocrit 32.4, platelet count 429,000. IMPRESSION: 1. Resolved bacteremia with methicillin-resistant Staphylococcus aureus. 2. Acute peritonitis with methicillin-resistant Staphylococcus aureus, currently treated with the antibiotics and Teflaro. 3. Status post wound dehiscence and surgical intervention. 4. The patient with mild peripheral edema, resolving. 5. Hypoalbuminemia was also noted secondary to current acute illness. The patient with suspected protein-calorie malnutrition. PLAN OF MANAGEMENT: Continue antibiotics, bronchodilators, oxygen supplementation. Obtain the prealbumin level tomorrow to assess the nutritional status. Physical therapy has been started at the bedside. Continue NG tube. Bronchodilator 3 times a day. Continue to mobilize secretions has been ordered. [place], [place] PROGRESS NOTE NAME: SIRIA GAGE UNIT #: [id number] ROOM: [facility] DOCTOR: JUAN BARAJAS MD,AMERICA BIRTHDATE: [birth year] Other additional treatment changes will be made for the patient based on progression of the illness. Usual care. Obtain a chest x-ray to assess the lung since the chest x-ray not be done for the last several days to exclude atelectasis or other abnormalities. AMERICA MARTINEZ MD CM:PNTRANS [id number] AMERICA BARAJAS MD 01/20/18 1145 interface
--- NOTE | ~2018-01-08 | PR ---
[place], [place] PROGRESS NOTE [id number] UNIT #: [id number] ROOM: 516 DOCTOR: THALIA TSE,JULY BIRTHDATE: [birth year] DOS: 01/17/2018 SUBJECTIVE: The patient is being followed for an abdominal surgical wound infection with MRSA bacteremia. He had undergone a colectomy on December the , discharge, readmitted. He had repair of the fascial dehiscence on January 14. Blood cultures from January 12 have grown MRSA. Repeat blood cultures from the and remained sterile. Abdominal cultures from the also grew MRSA. He currently remains on Teflaro and Flagyl. He remains intubated and sedated. Only review of systems is obtained from nursing. The patient opens his eyes, but does not respond, otherwise, he continues to have an NG to suction, the secretions have lightened. He also remains on TPN, temp is a little low grade overnight with the highest being 100.8, that was rectal temperature. LABORATORY DATA: Cultures as reviewed above. BUN 31, creatinine 0.65, sodium 139. LFTs within normal limits. VITAL SIGNS: Temperature 99.8, pulse 91, respirations 22, BP 110/71. CURRENT MEDICATIONS: Teflaro, Protonix, TPN, propofol, Flagyl, Lovenox, Lasix drip, Lopressor, Zosyn, acetaminophen, Pepcid. PHYSICAL EXAMINATION: GENERAL: A 62-year-old male, intubated, sedated, opens his eyes, but does not respond, otherwise. HEENT: Normocephalic, atraumatic. NG to well suction. LUNGS: Clear to auscultation bilaterally. Respirations even and unlabored. HEART: Regular rhythm. No murmur appreciated. ABDOMEN: Soft. Mild distention. Incision well approximated with retention sutures in place. Small amount of serosanguineous discharge from the lower abdomen. No surrounding cellulitis. SKIN: Warm, dry, free of rashes. EXTREMITIES: No edema or deformity. Right arm PICC dressing dry and intact. No signs of phlebitis. ASSESSMENT: Abdominal surgical wound infection and fascial dehiscence status post repair on January 14 with MRSA bacteremia. Repeat blood cultures remained sterile. PLAN: Continue the Teflaro and Flagyl, stop the Zosyn. JULY CARMENCITA VÁSQUEZ [place], [place] PROGRESS NOTE NAME: POPCHERIESIRIA UNIT #: [id number] ROOM: [facility] DOCTOR: THALIA TSEJULY BIRTHDATE: [birth year] Dalia Duvall MD CM:PNEDUAR [id number] VALERIA THALIA TSE 02/02/18 0807 interface
--- NOTE | ~2018-01-08 | PR ---
[place], [place] PROGRESS NOTE NAME: [facility]AGE [facility] [id number] UNIT #: [id number] ROOM: 516 DOCTOR: JUAN BARAJAS MD,AMERICA BIRTHDATE: [birth year] DOS: 01/24/2018 SUBJECTIVE: The patient has been noted comfortable from the pulmonary standpoint, doing well without any symptom described for the shortness of breath, coughing or wheezing. Continued oxygen supplementation for this patient until yesterday, there was no oxygen needed. The patient noted with normal pulse oxygen saturation at rest. OBJECTIVE: VITAL SIGNS: For the patient which were reviewed shows a normal temperature to 99.9 degree Fahrenheit. The respiratory rate 20, heart rate of 87, blood pressure 103/68 this morning. The pulse ox saturation 95% saturation on room air. HEENT: Chronic obesity. NECK: Supple. CARDIOVASCULAR: S1, S2 is audible. LUNGS: The patient noted without any wheeze or crackles. ABDOMEN: Soft, nontender. Bowel sounds present. EXTREMITIES: Without any acute edema. IMPRESSION: Leukocytosis, low-grade fever, etiology unclear. There was no clear cut respiratory symptom reported. Resolved acute hypoxic respiratory failure postoperatively. PLAN OF MANAGEMENT: Continue antibiotic, bronchodilator, look for any source of infection if present. Chest x-ray was ordered for the patient to exclude any pulmonary process. The patient could be explaining if low grade temperature and leukocytosis if present. AMERICA MARTINEZ MD CM:PNTRANS [id number] AMERICA BARAJAS MD 02/06/18 0805 interface
--- NOTE | ~2018-01-08 | PR ---
[place], [place] PROGRESS NOTE NAME: [facility]AGE [id number] UNIT #: [id number] ROOM: 516 DOCTOR: IDRIS RODRIGUEZ MD BIRTHDATE: [birth year] DOS: 01/17/2018 The patient had developed sepsis with respiratory distress and has been intubated and he had also complication of sigmoid resection and had to undergo repeat laparotomy to clean her abdomen and at present, the patient is on respirator and also taking intravenous Diprivan for sedation and is in comfortable resting position and his respiratory support is continuing with mechanical ventilation and the patient has paroxysmal supraventricular tachycardia and sepsis, ileus, hypertension and MRSA. His electrolyte today is showing glucose 122, BUN 31, creatinine is 0.65, calcium 7.7, magnesium 2.4, total protein 5, albumin 1.6, indicating hypoproteinemia, hyperalbuminemia and arterial blood gases today shows pH 7.4, pCO2 33.7, O2 saturation, temperature 99.5. The patient is being followed by Dr. Hollis and Cardiology and also by Infectious specialist. His blood pressure today is 124/75, pulse 88, respirations 19, temperature 99.5. The patient on respirator and sedated. His prognosis seemed to be poor. IDRIS RODRIGUEZ MD CM:PNTRANS [id number] IDRIS RODRIGUEZ MD 02/09/18 0735 interface
--- NOTE | ~2018-01-08 | CON ---
[place], [place] REPORT OF CONSULTATION NAME: SIRIA GAGE UNIT #: [id number] ROOM: 516 DOCTOR: ADOLFO SUÁREZ,MONICA BIRTHDATE: [birth year] DOS: 01/12/2018 CARDIOLOGY CONSULTATION REASON FOR CONSULT: Tachycardia. HISTORY OF PRESENT ILLNESS: The patient is a 62-year-old gentleman who was admitted for ileus. He recently had a partial sigmoid colectomy and discharged after several days of admission. He was brought into the Emergency Room with some abdominal distention and constipation and nausea and is admitted for ileus. He noted to have few episodes of tachycardia while he was in the hospital and Cardiology consulted for any further recommendations. He still complains of some nausea. Denies any chest pain or palpitation. No dizziness. No fever or chills. No PND, no orthopnea. No diarrhea, no hemoptysis. No hematuria or dysuria. REVIEW OF SYSTEMS: Review of the 10 systems negative except as mentioned above. PAST MEDICAL HISTORY: 1. History of hypertension. 2. Dyslipidemia. 3. History of dysplastic polyp in the sigmoid colon. 4. Non-morbid obesity. PAST SURGICAL HISTORY: History of partial sigmoid colectomy, 12/29/2017. HOME MEDICATIONS: Reviewed. ALLERGIES: Reviewed. SOCIAL HISTORY: The patient does not smoke or drink. Does not use illicit drugs. FAMILY HISTORY: Nil contributory. PHYSICAL EXAMINATION: INITIAL VITAL SIGNS: Blood pressure 126/78, pulse 90, respirations 20. Weight 112 kilos, BMI 32.6. GENERAL: Alert, comfortable, in no acute distress. NECK: Supple, no distended neck veins, no carotid bruit. CHEST: Symmetrical, nontender. LUNGS: Few scattered rhonchi, but good air entry bilaterally. HEART: Slightly irregular. No S3. Grade 1/6 systolic murmur. ABDOMEN: Soft, distended. The patient had 2 open wounds in the abdominal area with the drain and what looks like an ostomy bag. EXTREMITIES: Showed trace to 1+ edema. Distal pulses palpable. SKIN: Warm and dry. No cyanosis, no clubbing. RECTAL: Deferred. GENITOURINARY: Deferred. [place], [place] REPORT OF CONSULTATION NAME: SIRIA GAGE UNIT #: [id number] ROOM: 516 DOCTOR: ADOLFO SUÁREZ,MONICA BIRTHDATE: [birth year] REVIEW OF THE DIAGNOSTIC TESTS, LABS, IMAGING STUDIES AND RHYTHM STRIPS: Reviewed. Rhythm strip showed mostly sinus rhythm, sinus tachycardia, frequent supraventricular ectopy. The two rhythm strips showing some supraventricular tachycardia, irregular. It appears to be either atrial flutter versus atrial tachycardia and few beats could be atrial fib and flutter. IMPRESSION: 1. Paroxysmal supraventricular tachycardia, mostly asymptomatic. It appears to be atrial flutter versus atrial tachycardia versus atrial fibrillation/flutter. 2. Frequent supraventricular ectopy. 3. Ileus, postoperative. 4. Hypertension. 5. Recent partial sigmoid colectomy. 6. Non-morbid obesity. 7. Hypertension. 8. Dyslipidemia. RECOMMENDATIONS: 1. Start low dose beta riley for control of his tachycardia. 2. His CHADS2-VASc score is 1 with a stroke risk of 0.9 per year, his HAS-BLED score of 2 with risk of bleeding about 2% per year. Because of these and lower CHADS2-VASc score of 1 and his recent colectomy, I would continue aspirin at this time and this was discussed with Dr. Rios and we believe that lower dose aspirin will be the better choice for him at this time rather than oral anticoagulation. 3. Continue to watch his heart rate and blood pressures. 4. We will check 2D echo for LV function and valvular function. 5. Discussed with his family who is at bedside. 6. We will check TSH levels to rule out hyperthyroidism. MONICA MATA MD CM:CONSTR:REPORT OF CONSULTATION 28 03/09/18 0809 interface
--- NOTE | ~2018-01-08 | PR ---
[place], [place] PROGRESS NOTE NAME: SIRIA GAGE UNIT #: [id number] ROOM: 516 DOCTOR: IDRIS RODRIGUEZ MD BIRTHDATE: [birth year] DOS: 01/18/2018 The patient has been admitted to the hospital with severe sepsis with bone disruption and respiratory failure. The patient is on respirator and having severe ileus. He is still on respirator at present, he is sedated and so he cannot open his eyes due to sedation. His blood pressure 122/76, pulse 76, respirations 18, temperature 98.8. The patient is getting better as compared to before and he is having slight bowel movement present, which is a good improvement and his blood culture shows Staphylococcus aureus positive, which is sensitive to ciprofloxacin, clindamycin, gentamicin, levofloxacin and many other antibiotic and the patient is getting proper antibiotic and seen Infectious Disease expert and is being followed by Dr. Hollis for the respiratory problem and his tachycardia is under control and the patient is showing some improvement and as he had bowel sound present now. IDRIS RODRIGUEZ MD CM:CA [id number] IDRIS RODRIGUEZ MD 02/09/18 0711 interface
--- NOTE | ~2018-01-08 | PR ---
[place], [place] PROGRESS NOTE NAME: SIRIA GAGE UNIT #: [id number] ROOM: 516 DOCTOR: MONICA MATA MD BIRTHDATE: [birth year] DOS: 01/13/2018 REASON FOR VISIT: Supraventricular tachycardia and hypertension. HISTORY OF PRESENT ILLNESS: The patient is feeling better. Denies any chest pain, palpitation. Denies shortness of breath. His nausea is much better. He is tolerating p.o. diet. REVIEW OF SYSTEMS: Review of the 10 systems negative except as mentioned above. PHYSICAL EXAMINATION: VITAL SIGNS: Blood pressure 108/76, pulse 90, respiratory rate 20, weight 112 kilos, BMI 32. RHYTHM STRIPS: The patient was in sinus rhythm with supraventricular ectopy. GENERAL: Alert, comfortable, in no acute distress. HEENT: Pupils round, equal. No jaundice. NECK: Supple, no distended neck veins, no carotid bruit. CHEST: Nontender and symmetrical. LUNGS: Clear to auscultation bilaterally. HEART: Slightly irregular. Grade 1/6 systolic murmur. ABDOMEN: Slightly distended. Bowel sounds normal. The patient had 2 wound drains. EXTREMITIES: Showed trace edema. Distal pulses palpable. SKIN: Warm and dry. No cyanosis, no clubbing. RECTAL: Deferred. Medications as reviewed. IMPRESSION: 1. Paroxysmal supraventricular tachycardia appears to be either atrial tachycardia, atrial flutter or atrial Fib/flutter, no recurrence. CHADS-VASc score is 1 with a stroke risk of 0.9 per year with HAS-BLED score of 2 with risk of bleeding 2% per year. So I am agreeable to continue aspirin 81 mg daily and without any oral anticoagulation. 2. Hypertension. 3. Ileus, postoperative. 4. Non-morbid obesity. RECOMMENDATIONS: 1. Continue beta blockers and monitor the heart rate and blood pressure. 2. A 2D echo was ordered and pending. 3. No further cardiac testing at this time. I discussed with the who is at bedside. [place], [place] PROGRESS NOTE NAME: SIRIA GAGE UNIT #: [id number] ROOM: 516 DOCTOR: MONICA MATA MD BIRTHDATE: [birth year] MONICA MATA MD CM:CA [id number] MONICA MATA MD 03/09/18 0811 interface
--- NOTE | ~2018-01-08 | PR ---
[place], [place] PROGRESS NOTE NAME: SIRIA GAGE UNIT #: [id number] ROOM: [facility] DOCTOR: LETTY CRUZ MD BIRTHDATE: [birth year] DOS: 01/22/2018 SUBJECTIVE: The patient was seen at his bedside in the intensive care unit today 01/22/2018 for followup of SVT and bacteremia with Staphylococcus aureus. He is now sitting up, beside the bed and his NG tube has been removed. He is starting to tolerate clear fluids and is moving his bowels. He will probably be started on oral nutrition within the next 24 hours. He has not had any supraventricular tachycardia and continues to receive his metoprolol intravenously. Blood cultures from 01/13 and on 01/16 remain sterile. OBJECTIVE: VITAL SIGNS: Today, his pulse is 90 and regular, blood pressure is 118/76. He is afebrile. NECK: Supple. He has no jugular distention. CHEST: Clear. HEART: Has a regular rhythm with an S4 gallop. He has no scleral hemorrhages and no subungual hemorrhages or Leach spots. His legs are not swollen. ABDOMEN: Distended. The wound is bandaged. He has bowel sounds. EXTREMITIES: Showed no edema. IMPRESSION: 1. Paroxysmal supraventricular tachycardia and atrial flutter earlier this admission without further recurrences documented. 2. Status post partial colectomy and subsequent dehiscence with reoperation for repair. 3. Postoperative respiratory failure. The patient required ventilatory support, but tolerated weaning and removal of the ventilator as of 01/19/2018. 4. Prolonged postoperative ileus, which appears to be resolving. 5. History of hypertension. 6. Staphylococcal bacteremia and wound infection. PLAN: At this point, we have no plans for long-term anticoagulation of the patient since his [id number] score is 1. We will continue him on intravenous beta blockers for one more day. If he tolerates oral feedings we will switch him to oral metoprolol tomorrow. I thank the hospitalist physicians and Dr. Pepe for asking our advice regarding the management of this patient. [place], [place] PROGRESS NOTE NAME: SIRIA GAGE UNIT #: [id number] ROOM: [facility] DOCTOR: LETTY CRUZ MD BIRTHDATE: [birth year] LETTY CRUZ MD CM:PNEDUAR [id number] LETTY CRUZ MD 01/22/18 1738 interface
--- NOTE | ~2018-01-08 | PR ---
[place], [place] PROGRESS NOTE NAME[id number] UNIT #: [id number] ROOM: 516 DOCTOR: JUAN BARAJAS MD,AMERICA BIRTHDATE: [birth year] DOS: 01/17/2018 SUBJECTIVE: The patient has been noted on the mechanical ventilator at this time remains good control, volume control of mechanical ventilation. He has been sedated with intravenous Diprivan. He has not been noted any acute hemodynamic instability at this time. The patient has been getting TPN. Diprivan was use primarily for the sedation with use of the Versed as needed at 35 mg every 1 hour. He has not been noted any hemodynamic instability. Oxygen requirement remains 30% oxygen from last 24 hours. REVIEW OF SYSTEMS: Could not be completed since the patient is already intubated on the mechanical ventilator. OBJECTIVE: VITAL SIGNS: For the patient noted as low grade fever of 100.3 degree Fahrenheit rectal temperature and oral temperature noted 99.5 degree Fahrenheit, respiratory rate ranged between 19 to 24, pulse 84 to 88, blood pressure 117/70-139/50. Intake was noted as 4600, the output of 4100 mL, negative for 766 mL. HEAD, EYES, EARS, NOSE, AND THROAT: Examination shows head was atraumatic. Eyes nonicterus. NECK: Supple. The patient remains orally intubated. CARDIOVASCULAR SYSTEM: S1, S2 is audible. LUNGS: Noted with decreased breaths previously noted mildly, but there was no wheezing, no crackles. ABDOMEN: Still noted distended. Absent bowel sounds. Continue significant amount of NG tube output as well. EXTREMITIES: Noted without any edema. CENTRAL NERVOUS SYSTEM: No new changes. VISIBLE SKIN: No lesions or rashes. MUSCULOSKELETAL: Without acute deformities. LABORATORY AND DIAGNOSTIC DATA: BMP this morning, BUN 31, creatinine was normal, glucose 172. LFTs, albumin 1.6, total protein of 5.8. Magnesium 2.4. Other electrolytes were normal. ABG this morning, pH of 7.49, pCO2 of 33, creatinine of 82.2. Chest x-ray that was done this morning was reviewed from the PACS images was noted with persistent small lung volume noted, endotracheal tube was noted in the appropriate position. Air was still noted large amounts in the intestine below the diaphragm. IMPRESSION: The patient who has been currently treated at this time noted persistent acute respiratory failure with acute peritonitis noted with MRSA bacteremia as well. Persistent findings consistent with dehiscence of the abdominal wound which was also noted. Oxygenation noted normal. There was no evidence of acute pneumonia. PLAN OF MANAGEMENT: Assess the patient's mental status sedation vacation daily basis. The patient not noted a candidate for weaning from the mechanical ventilator at this time. Continue abdominal problem management for surgery staff as well as infection management by the Infectious Disease, special [place], [place] PROGRESS NOTE NAME: [facility]AGE [id number] UNIT #: [id number] ROOM: 516 DOCTOR: JUAN BARAJAS MD,AMERICA BIRTHDATE: [birth year] recommendation for the MRSA bacteremia. Other supportive therapy, plan of management to be continued as in progress. Nutrition support. Try to keep the patient in negative fluid balance. The patient given Lasix 20 mg daily that will be continued. Other plan of therapy as in progress. Usual care. Supportive care. DVT prophylaxis. Ventilator bundle management otherwise to be continued. Total time in pulmonary critical care evaluation and management was 36 minutes. AMERICA MARTINEZ MD CM:PNEDUAR [id number] AMERICA BARAJAS MD 02/06/18 0800 interface
--- NOTE | ~2018-01-08 | PR ---
[place], [place] PROGRESS NOTE NAME: SIRIA GAGE [facility] #: [id number] UNIT #: [id number] ROOM: [facility]- DOCTOR: LETTY CRUZ MD BIRTHDATE: [birth year] DOS: SUBJECTIVE: The patient was seen at his bedside in the intensive care unit today 01/17/2018 for followup of supraventricular tachycardia. He is a 62-year-old man who had a partial sigmoid colectomy for polyp disease and was discharged several days later. He was brought back into the hospital with abdominal distention and constipation along with nausea and was admitted for ileus. In the hospital, he was noted to have episodes of tachycardia and Cardiology was consulted to assist in its management. Dr. Major felt that he had paroxysmal supraventricular tachycardia was mostly asymptomatic. Some of the strips were consistent with atrial flutter, but the patient's [id number] score is only 1 and therefore antiplatelet therapies only are being considered for his anticoagulation. The patient has developed worsening respiratory failure and is currently intubated and on a ventilator. Laboratory studies do show a Staph aureus growing from wound cultures along with blood cultures. He is being followed by Infectious Disease for this. Currently, the patient is sedated and on a ventilator. He appears fairly comfortable. PHYSICAL EXAMINATION: VITAL SIGNS: He is sedated, but arousable, pulse is 90 and regular, blood pressure is 117/73. He is afebrile with a temperature of 98.9. NECK: Supple. He has no jugular distention. Carotids are full. LUNGS: Respirations are per ventilator. He has decreased breath sounds at the bases, but no wheezes or rales. HEART: Has a regular rhythm with an S4 gallop. I did not hear an S3. There was no prominent murmur present. The PMI was not displaced and there was no precordial heave, lift or thrill. ABDOMEN: Not evaluated because of the presence of a large surgical incision, retention sutures, etc. EXTREMITIES: Showed trace edema. LABORATORY DATA: Hemoglobin is 11.1, hematocrit 32.9, white count 15,200, platelet count 467,000. Sodium 139, potassium 3.5, chloride 103, CO2 28, BUN 31, creatinine 0.65. IMPRESSION: 1. Postoperative ileus and respiratory failure, on ventilator. 2. Status post laparotomy for partial colectomy. The wound has dehisced. 3. Postoperative ileus. 4. Hypertension. 5. Paroxysmal supraventricular tachycardia with atrial flutter versus supraventricular tachycardia. 6. Bacteremia and wound infection with Staphylococcus aureus, which appears to be methicillin-resistant. PLAN: We will continue to observe him in the hospital and evaluate and treat [place], [place] PROGRESS NOTE NAME: SIRIA GAGE UNIT #: [id number] ROOM: [facility] DOCTOR: LETTY CRUZ MD BIRTHDATE: [birth year] him as needed. If recurrent bacteremias are documented, JUAN may be required to further determine his cardiac status and whether or not he has endocarditis. His exam; however, does not show any peripheral embolic phenomena, immunologic phenomena, etc., to suggest staphylococcal endocarditis and he does not have any pronounced murmurs. Should this change, we will need to be more aggressive in our assessment. We thank Dr. Pepe for asking our advice regarding his care. LETTY CRUZ MD CM:PNTRANS [phone] LETTY CRUZ MD 01/18/18 0249 interface
--- NOTE | ~2018-01-08 | PR ---
[place], [place] PROGRESS NOTE NAME: SIRIA GAGE UNIT #: [id number] ROOM: 516 DOCTOR: IDRIS RODRIGUEZ MD BIRTHDATE: [birth year] DOS: SUBJECTIVE: The patient is in the hospital for many days with sepsis and wound disruption and infection of the abdominal cavity. He is gradually improving and getting better. He is more comfortable. He is breathing good. He denies any chest pain, no difficulty in breathing. He is eating fairly good. Bowel sounds are normal. His blood culture did not grow any bacteria. Sputum culture also has normal jaimee. OBJECTIVE: VITAL SIGNS: Blood pressure is 117/67, pulse 86, respirations 22 and temperature 98.3. HEENT: Showing gradual improvement. IDRIS RODRIGUEZ MD CM:PNTRANS [id number] IDRIS RODRIGUEZ MD 01/27/18 0735 interface
--- NOTE | ~2018-01-08 | O ---
[place], [place] OPERATIVE NOTE NAME: [id number] UNIT #: [id number] ROOM: [facility] DOCTOR: LESTER PEPE MD BIRTHDATE: [birth year] DOS: 01/14/2018 PREOPERATIVE DIAGNOSIS: Suspected fascial dehiscence. POSTOPERATIVE DIAGNOSIS: Fascial dehiscence. PROCEDURE: Exploratory laparotomy with repair of fascial dehiscence. SURGEON: Lester Pepe MD RETAIL PHARMACY TECHNICIAN: BHAVNA. ANESTHESIA: General. INDICATIONS: This is a 62-year-old gentleman who recently underwent an exploratory laparotomy with partial colectomy for whom fascial dehiscence was suspected after he got readmitted for ileus. It was decided to take the patient to the operating room for an exploratory laparotomy and repair of possible fascial dehiscence. The procedure and its complications were explained to the patient in detail preoperatively. Complications that were discussed included but were not limited to bleeding, infection, hematoma/seroma/abscess formation, incisional hernia formation, prolonged pain and damage to lying vital structures. He agreed to proceed. DESCRIPTION OF PROCEDURE: After identifying the patient, the patient was brought to the operating suite and laid in the supine position. After induction of general anesthesia, timeout procedure was called and a block on both sides was placed by the anesthesia team. A Stephens catheter was placed into the urinary bladder and the parts were then painted and draped in the usual sterile fashion. The previously placed efra were removed and the skin was opened. It was found that the entire fascia had dehisced open. At this point, the loops of small intestine was from the surrounding fascial opening with the help of blunt dissection. The distended small bowel was decompressed by squeezing all the fluid and air through the lumen into the lumen of the stomach from it was sucked away. There was a small tear in the serosa that was identified, which was repaired with help of 3-0 silk in an interrupted fashion. After adequate decompression was performed, the edges of the fascia were freshened in order to get a good healthy amount of tissue for closure. At this point, four #1 Ethilon sutures were placed as retention sutures and the fascial defect itself was then approximated with the help of looped PDS in a running fashion. The fascial sutures were tied together and the skin was approximated with the help of efra. Note should be made that prior to closure of the fascia and these retention sutures, copious amounts of saline was used for irrigation and the specimen was sent from the subcutaneous fluid for culture and sensitivity. A dressing was placed. The patient was taken to the ICU in an intubated stable fashion. There were no complications. Blood loss was less than [address] Lester Pepe, the attending surgeon, was present throughout the operating case. [place], [place] OPERATIVE NOTE NAME: SIRIA GAGE UNIT #: [id number] ROOM: [facility] DOCTOR: LESTER PEPE MD BIRTHDATE: [birth year] Lester Pepe MD CM:OPRECORD:OPERATIVE NOTE [id number] LESTER PEPE MD 01/14/18 1508 interface
--- NOTE | ~2018-01-08 | PR ---
[place], [place] PROGRESS NOTE [id number] UNIT #: [id number] ROOM: 516 DOCTOR: JUAN BARAJAS MD,AMERICA BIRTHDATE: [birth year] DOS: 01/18/2018 PULMONARY CRITICAL CARE EVALUATION AND MANAGEMENT SUBJECTIVE: The patient made on mechanical ventilator. Sedation has been significantly decreased. The patient noted interactive with the family members. Currently, the patient is getting Diprivan 30 mcg per gram per minute infusion. His eyes was noted open and the patient noted calm. He nodded his head with the vocal commands. He has not been noted to have any bowel movements. The patient noted with bowel sounds present early this morning. He has not been noted with any hemodynamic instability and respiratory problem remains the same on mechanical ventilator setting yesterday, assist control, volume control of mechanical ventilation. The feeding was continued with the TPN. OBJECTIVE: VITAL SIGNS: Showed normal temperature to 99.9 degree Fahrenheit, respiratory rate of 20-16, heart rate 94-78, normal sinus rhythm, blood pressure 112/76-123/72. Pulse oxygen saturation on 30% oxygen 96% saturation. HEENT: The patient remained orally intubated. NG tube is in place. NECK: Supple. Head was atraumatic. CARDIOVASCULAR: S1, S2 is audible. LUNGS: Noted [id number] decreased breath sounds bilaterally. ABDOMEN: Soft with moderate distention, mildly hypoactive bowel sounds. EXTREMITIES: The patient was noted with minimal edema. LABORATORY DATA: Arterial blood gas this morning assist control, volume control, pH of 7.48, pCO2 of 39, pO2 of 84, 30% oxygen. Low tidal volume strategy for the patient was continued. Blood culture of 01/16/2018 showed no bacterial growth, 3 sets. The blood culture done on 01/13/2018 reported no bacterial growth, final results of the renal function panel today glucose 124, BUN 28, creatinine 0.68. The remaining electrolytes normal, albumin noted decreased at 1.5. IMPRESSION: The patient who has been noted currently with acute respiratory failure, status post wound dehiscence with peritonitis. The patient was also noted with Methicillin-resistant Staphylococcus aureus, currently treated with Teflaro. Vancomycin discontinued by the Infectious Disease Services. Bacteremia seemed to be resolved at this time, no further bronchoscopy culture noted abnormal, which were taken on the 01/13/2018 and the 01/16/2018. The patient's sedation will be further decreased. Continue TPN. Continue diuretics. The patient was started on CPAP of 5, pressure support of 10 with good tidal volume about 600 mL. Respiratory rate about 18 without any distress. The sedation continue to be decreased. Currently CPAP for weaning purpose to assess the stability on the mechanical ventilator. Possible consideration of liberation of mechanical ventilator tomorrow depending further improvement of the abdominal process. Continue nutritious support. Usual care, other supportive therapy, plan of management. Chest x-ray will be obtained p.r.n. Other additional treatment will be recommended based on progression of the illness. Assessment and management of the patient were discussed with the patient's family members at the bedside in detail. [place], [place] PROGRESS NOTE NAME: SIRIA GAGE UNIT #: [id number] ROOM: 6 DOCTOR: AMERICA BRIONES MD BIRTHDATE: [birth year] Total time for pulmonary critical care evaluation and management for the patient was 37 minutes. AMERICA MARTINEZ MD CM:PNTRANS [phone] AMERICA BARAJAS MD 02/06/18 0802 interface
--- NOTE | ~2018-01-08 | PR ---
[place], [place] PROGRESS NOTE NAME: SIRIA GAGE [facility] #: [id number] UNIT #: [id number] ROOM: 516 DOCTOR: JUVE CALERO DO BIRTHDATE: [birth year] DOS: 01/27/2018 SUBJECTIVE: The patient was seen and examined. He complained of occasional abdominal spasms, but denied any fevers, chills, nausea, vomiting, chest pain. OBJECTIVE: VITAL SIGNS: Show temperature at 97.7 degrees Fahrenheit, heart rate at 79, respiratory rate 18, blood pressure 110/75, pulse oximetry 95% on room air. GENERAL APPEARANCE: The patient was awake, alert, responsive, cooperative and in no acute distress. HEENT: Head was normocephalic and atraumatic. No lesions or ulcerations were noted to the eyes. NECK: Trachea appears midline. HEART: Positive S1 and S2 sounds were heard. The bilateral lower extremities were without pitting edema. PULMONARY: Lungs were without any rhonchi, rales or wheezing. ABDOMEN: Bowel sounds were present. The abdomen was soft. EXTREMITIES: Bilateral lower extremities were without pitting edema. No clubbing, cyanosis or erythema was noted. LABORATORY DATA: Most recent CBC from yesterday 01/26/2018 shows white count at 14.3, hemoglobin 9.1, hematocrit 27.8, platelets at 539. Most recent chemistries from yesterday 01/26/2018 shows sodium at 140, potassium 3.3, chloride 106, bicarbonate 25, BUN 22, creatinine 0.86, glucose 94, calcium 8.1, phosphorus 3.1, magnesium 2.2. In terms of microbiology, more recently a sputum culture obtained on 01/24/2018 shows preliminary growth of normal jaimee with moderate amounts of gram-negative bacilli. IMPRESSION: 1. Gram-negative bacilli in sputum culture, but without clinical signs of infection. 2. Methicillin-resistant Staphylococcus aureus peritonitis, resolved. 3. Methicillin resistant Staphylococcus aureus bacteremia, resolved. 4. Wound dehiscence status post surgical repair on 01/14/2018. 5. Obesity. PLAN OF MANAGEMENT: The patient is currently on bronchodilator therapy. The Infectious Disease service is following the patient and his antibiotics have been discontinued. The patient is with gram-negative bacilli in his sputum pending final culture results, but he clinically does not appear to have any pulmonary infection at this time. The Cardiology service was following the patient for paroxysmal SVT and atrial flutter, but they have since signed off per General Surgery, the patient is stable for discharge to a custodial facility today. From a pulmonary standpoint, likewise no changes need to be made at this time. Juve Calero DO [place], [place] PROGRESS NOTE NAME: SIRIA GAGE UNIT #: [id number] ROOM: 6 DOCTOR: JUVE CALERO DO BIRTHDATE: [birth year] AMERICA MARTINEZ MD CM:PNTRANS [id number] JUVE CALERO DO 01/27/18 1433 interface
--- NOTE | ~2018-01-08 | PR ---
[place], [place] PROGRESS NOTE NAME: SIRIA GAGE [facility] #: [id number] UNIT #: [id number] ROOM: [facility] DOCTOR: LETTY CRUZ MD BIRTHDATE: [birth year] DOS: SUBJECTIVE: The patient was seen at his bedside in the intensive care unit today 01/19/2018 for followup of SVT. The patient has tolerated weaning from a ventilator and is no longer on sedation. He is breathing easily and denies any chest discomfort. The patient did have episodes of supraventricular tachycardia and a blood culture was positive for Staphylococcus aureus earlier in his hospitalization. He is in the hospital for management of a dehiscence following a partial colectomy. The patient has not had any tachyarrhythmias for the last few days and does seem to be improving. PHYSICAL EXAMINATION: VITAL SIGNS: On exam, his pulse is 95 and regular, blood pressure is 113/85. His temperature is 99.2. NECK: Supple. He has no jugular distention. Carotids are full. LUNGS: Respirations are unlabored. Chest is clear anteriorly with decreased breath sounds at the bases. HEART: Has a regular rhythm with an S4 gallop, but no S3 or obvious murmurs. ABDOMEN: Bandaged with a binder in place. Bowel sounds remain limited. EXTREMITIES: Showed no edema. He does not have any scleral hemorrhages, Osler nodes or subungual hemorrhages. LABORATORY DATA: Blood cultures from January 16 have remained negative. Blood cultures from January 13 are also negative. IMPRESSION: 1. Paroxysmal supraventricular tachycardia and atrial flutter earlier this admission without further recurrences documented [id number] score is 1 and patient is not being considered for long-term anticoagulation. 2. Status post partial colectomy with subsequent dehiscence and reoperation for repair. 3. Postoperative respiratory failure. The patient has tolerated weaning from ventilator as of 01/19/2018. 4. Prolonged postoperative ileus. 5. History of hypertension. 6. Staphylococcal bacteremia. Blood cultures from January 13 and January 16 are sterile at this point. PLAN: We will continue observation. We will defer to his Infectious Disease consultants as to whether or not he will require further assessment such as transesophageal echocardiography. I thank the hospitalist physicians and Dr. Pepe for asking our advice regarding his care. [place], [place] PROGRESS NOTE NAME: SIRIA GAGE UNIT #: [id number] ROOM: [facility] DOCTOR: LETTY CRUZ MD BIRTHDATE: [birth year] LETTY CRUZ MD CM:CA [id number] LETTY CRUZ MD 01/19/18 1143 interface
--- NOTE | ~2018-01-08 | PR ---
[place], [place] PROGRESS NOTE NAME: SIRIA GAGE UNIT #: [id number] ROOM: [facility]- DOCTOR: JUVE CALERO DO BIRTHDATE: [birth year] DOS: 01/20/2018 SUBJECTIVE: The patient was seen and examined at the bedside. He was successfully extubated yesterday and reports that he is experiencing a cough with production of clear sputum. He is experiencing some pain in his abdomen with coughing. He denies fevers or chills or any chest pain. It was reported by nursing that he was able to have two large bowel movements. OBJECTIVE: VITAL SIGNS: Show temperature at 98.1 degrees Fahrenheit, heart rate at 102, respiratory rate at 16, blood pressure 160/82, pulse oximetry was 95% on 2 liters via nasal cannula. GENERAL APPEARANCE: The patient was awake, alert, responsive, cooperative and in no acute distress. HEENT: Head was normocephalic and atraumatic. No lesions or ulcerations were noted to the eyes. An NG tube was noted. NECK: Trachea appears midline. HEART: Rate was tachycardic. Rhythm was regular. Positive S1 and S2 sounds were heard. No murmurs, rubs or gallops were appreciated. The bilateral lower extremities were without pitting edema. PULMONARY: Breath sounds were diminished at the lung bases bilaterally. No rhonchi, rales or wheezing was appreciated. ABDOMEN: Bowel sounds were auscultated. The abdomen appeared less distended today. The abdomen was soft. EXTREMITIES: Bilateral lower extremities were without pitting edema. No clubbing, cyanosis or erythema was noted. LABORATORY DATA: CBC from today showed white count at 18.7, hemoglobin 10.8, hematocrit 32.4, platelets 429. Chemistries from today show sodium at 141, potassium 3.8, chloride 100, bicarbonate at 32, BUN 31, creatinine 0.65, glucose 124, calcium 8.4, phosphorus 3.2, magnesium 2.3, total bilirubin 0.4, AST 35, ALT 33, alkaline phosphatase 155, albumin 1.7. MICROBIOLOGY: Urine culture obtained on 01/13/2018 showed growth for around 75,000 CFUs, Klebsiella pneumoniae, pansensitive. The nares were noted to be positive for MRSA. Wound cultures from 01/14/2018 showed growth for MRSA as did blood cultures from 01/12/2018. More recent blood cultures from 01/16/2018 were negative for bacterial growth. IMPRESSION: 1. Respiratory failure much improved, status post extubation yesterday. 2. Wound dehiscence, status post surgical intervention on 01/14/2018. 3. Methicillin-resistant Staphylococcus aureus bacteremia, resolved. 4. Methicillin-resistant Staphylococcus aureus peritonitis. 5. Obesity. 6. Leukocytosis. 7. Normocytic anemia. 8. Thrombocytosis. 9. Hyperglycemia. [place], [place] PROGRESS NOTE NAME: SIRIA GAGE UNIT #: [id number] ROOM: [facility] DOCTOR: JUVE CALERO DO BIRTHDATE: [birth year] 10. Hypermagnesemia. 11. Transaminitis. 12. Severe protein-calorie malnutrition. PLAN OF MANAGEMENT: The patient remains on TPN as well as IV Lasix 20 mg daily. He remains on bronchodilator therapy. He is currently being followed by the Infectious Disease, General Surgery as well as the Cardiology Service. It appears that the plan is for him to continue with the NG tube for another day. For his diarrhea, his primary service is also checking a C. difficile panel. He is currently on IV Flagyl and IV Teflaro. The patient's DuoNeb treatments will be spaced out to 3 times per day and another chest x-ray will be ordered to assess for any interval change status post extubation. Pulmonary medicine will continue to follow along. Juve Calero DO AMERICA MARTINEZ MD CM:CA [id number] JUVE CALERO DO 01/20/18 1331 interface
--- NOTE | ~2018-01-08 | PR ---
[place], [place] PROGRESS NOTE NAME: SIRIA GAGE UNIT #: [id number] ROOM: [facility] DOCTOR: MONICA MATA MD BIRTHDATE: [birth year] DOS: 01/16/2018 REASON FOR VISIT: Paroxysmal supraventricular tachycardia. SUBJECTIVE: The patient is on ventilator, sedated. No further tachyarrhythmias. The blood pressure and heart rates are stable. REVIEW OF SYSTEMS: Review of the 10 systems negative due to the patient being sedated and on ventilator. On rhythm strips, patient in sinus rhythm. PHYSICAL EXAMINATION: VITAL SIGNS: Blood pressure 124/76, pulse 81, respiration 16. GENERAL: Alert, comfortable, in no acute distress. HEAD: The patient is on ventilator. NECK: Supple, no distended neck veins, no carotid bruit. CHEST: Symmetrical. HEART: Regular rhythm, no S3. Grade 1/6 systolic murmur. ABDOMEN: Bowel sounds diminished. EXTREMITIES: Showed no edema. Distal pulses palpable. SKIN: Warm and dry. No cyanosis, no clubbing. RECTAL: Deferred. GENITOURINARY: Deferred. MEDICATIONS AND LABORATORIES: Reviewed. IMPRESSION: 1. Paroxysmal supraventricular tachycardia, atrial flutter versus atrial tachycardia, no further recurrence. CHADS2-VASc score is 1 with stroke risk of 0.9% per year, HAS-BLED score of 2 with bleeding risk of 2% per year. The patient was on aspirin 81 mg, no further recurrence. 2. Postoperative respiratory failure, on ventilator. 3. Emergency laparotomy due to wound dehiscence. 4. History of postoperative ileus. 5. Hypertension. 6. Methicillin-resistant Staphylococcus aureus bacteremia. ID on the case. RECOMMENDATIONS: Continue IV beta blockers and change to p.o. beta riley when he tolerates p.o. medications. If his bacterium gets worse and persistent, he needs a JUAN to rule out endocarditis. Cardiology will see as needed during the weekend. There is no family at bedside at the time of my examination. [place], [place] PROGRESS NOTE NAME: SIRIA GAGE UNIT #: [id number] ROOM: [facility] DOCTOR: MONICA MATA MD BIRTHDATE: [birth year] MONICA MATA MD CM:PNEDUAR [id number] MONICA MATA MD 01/17/184 interface
--- NOTE | ~2018-01-08 | PR ---
[place], [place] PROGRESS NOTE NAME: SIRIA GAGE UNIT #: [id number] ROOM: [facility] DOCTOR: MONICA MATA MD BIRTHDATE: [birth year] DOS: 01/15/2018 REASON FOR VISIT: Paroxysmal supraventricular tachycardia. HISTORY OF PRESENT ILLNESS: The patient is on ventilator and sedated. Hence subjective symptoms and review of systems are limited. REVIEW OF SYSTEMS: Limited since the patient is on ventilator and sedated. PHYSICAL EXAMINATION: VITAL SIGNS: Blood pressure 112/64, pulse 82, respiration is 20. Rhythm strips, the patient in sinus rhythm. GENERAL: The patient was sedated on ventilator. NECK: No distended neck veins. CHEST: Symmetrical. LUNGS: Few scattered rhonchi. HEART: Regular rhythm, no S3. Grade 1/6 systolic murmur. ABDOMEN: Bowel sounds are diminished. EXTREMITIES: Showed no edema. Distal pulses palpable. SKIN: Warm and dry. No cyanosis, no clubbing. RECTAL: Deferred. MEDICATIONS AND ALLERGIES AND LABORATORY DATA: Reviewed. IMPRESSION: 1. Paroxysmal supraventricular tachycardia, possible atrial flutter versus atrial tachycardia with a CHADS2-VASc score of 1 with HAS-BLED score of 2. 2. Hypertension. 3. Postoperative ileus, status post emergent surgery for wound dehiscence. 4. Non-morbid obesity. 5. Methicillin-resistant Staphylococcus aureus bacteremia. RECOMMENDATIONS: 1. Continue to watch heart and blood pressures. 2. Change IV Lopressor to p.o. metoprolol once he is able to tolerate p.o. medications. 3. Cardiology will see as needed during the weekend. 4. There is no family at bedside at the time of my examination. 5. If the patient's bacteremia gets worse, he may need a JUAN to rule out endocarditis next week. [place], [place] PROGRESS NOTE NAME: SIRIA GAGE UNIT #: [id number] ROOM: [facility] DOCTOR: MONICA MATA MD BIRTHDATE: [birth year] MONICA MATA MD CM:PNTRANS [phone] MONICA MATA MD 01/16/18 0419 interface
--- NOTE | ~2018-01-08 | PR ---
[place], [place] PROGRESS NOTE NAME: SIRIA GAGE UNIT #: [id number] ROOM: [facility] DOCTOR: JUVE CALERO DO BIRTHDATE: [birth year] DOS: 01/21/2018 SUBJECTIVE: The patient was seen and examined. He was in his chair sitting upright in the ICU. The patient was without an NG tube this morning. He states that his breathing is near baseline. He is still experiencing a cough, occasionally productive for clear sputum. Denies fevers, chills, nausea, abdominal pain. He has not had a bowel movement yet today. OBJECTIVE: VITAL SIGNS: Show temperature at 99.8 degrees Fahrenheit, heart rate at 79, respiratory rate 17, blood pressure 110/75, pulse oximetry 97% on 2 liters via nasal cannula. GENERAL APPEARANCE: The patient was awake, alert, responsive, cooperative and in no acute distress. HEENT: Head was normocephalic and atraumatic. No lesions or ulcerations were noted to eyes. NECK: Trachea appears midline. HEART: Regular rate and rhythm was noted. Positive S1 and S2 sounds were heard. No murmurs, rubs or gallops were appreciated. PULMONARY: Breath sounds were diminished at the lung bases bilaterally. No rhonchi, rales or wheezing were appreciated. ABDOMEN: Bowel sounds were auscultated. The abdomen continues to appear less distended. The abdomen was soft. EXTREMITIES: Bilateral lower extremities were without pitting edema. No clubbing, cyanosis or erythema was noted. The patient was wearing SCDs. LABORATORY DATA: CBC from today shows white count at 17.5, hemoglobin at 10.8, hematocrit at 32.7, platelets at 456. Chemistries from today show sodium at 138, potassium 3.7, chloride 99, bicarbonate 34, BUN 33, creatinine 0.73, glucose 131, calcium 8.3, phosphorus 3.1, magnesium 2.2, total bilirubin 0.4, AST 28, ALT 31, alkaline phosphatase 162, albumin 1.7, prealbumin 21. There is no change in terms of microbiology since yesterday 01/20/2018. IMPRESSION: 1. Methicillin-resistant Staphylococcus aureus peritonitis. 2. Wound dehiscence status post surgical repair on 01/14/2018. 3. Resolved Methicillin-resistant Staphylococcus aureus bacteremia. 4. Resolved respiratory failure, status post extubation on 01/19/2018. 5. Obesity. 6. Leukocytosis. 7. Normocytic anemia. 8. Thrombocytosis. 9. Hyperglycemia. 10. Hypermagnesemia. 11. Transaminitis. 12. Severe protein-calorie malnutrition. PLAN OF MANAGEMENT: At this time, the patient remains on bronchodilator therapy 3 times a day. The Infectious Disease service is following him and he remains on IV Flagyl and IV Teflaro for his MRSA infection. The Cardiology [place], [place] PROGRESS NOTE NAME: SIRIA GAGE UNIT #: [id number] ROOM: [facility] DOCTOR: JUVE CALERO DO BIRTHDATE: [birth year] service remains on board as well and they do not see any signs of endocarditis thus far. The patient is receiving TPN and IV Lasix 20 mg daily. He has now been started on ice chips. A chest x-ray will be obtained tomorrow to assess for any interval improvement in his lung volumes. Juve Calero, DO AMERICA MARTINEZ MD CM:PNTRANS [phone] JUVE CALERO DO 01/21/18 1149 interface
--- NOTE | ~2018-01-08 | PR ---
[place], [place] PROGRESS NOTE NAME: SIRIA GAGE UNIT #: [id number] ROOM: 516 DOCTOR: JUAN BARAJAS MD,AMERICA BIRTHDATE: [birth year] DOS: 01/23/2018 SUBJECTIVE: The patient noted comfortable at this time without any acute distress. Remains in the hospital. He has been taking clear liquid and continue TPN as well. Stephens catheter removed yesterday noted with some hesitancy and increased frequency of urination with history of prostate problems. OBJECTIVE: VITAL SIGNS: Normal temperature, respiratory rate 22, heart rate 113, blood pressure 147/83. The pulse ox saturation on room air 94% saturation. HEENT: Examination shows no acute change. CARDIOVASCULAR: S1, S2 is audible. LUNGS: The patient noted without any wheeze or crackles at present time. ABDOMEN: Soft, nontender. Bowel sounds present. EXTREMITIES: The patient without any acute edema. LABORATORY DATA: CBC today: WBC count 17.5, hemoglobin 10.1. CMP this morning, BUN 28, creatinine was normal. Albumin 1.9. IMPRESSION: 1. The patient with status post wound dehiscence management. The patient acute peritonitis, anaerobic organism, as well as MRSA and MRSA bacteremia all improving progressively. 2. Improving acute respiratory failure, does not require any oxygen supplementation at this time. PLAN OF TREATMENT: The patient will resume his usual dose of Flomax 0.4 mg daily. Continuation of the bronchodilators. Oxygen supplementation in case of hypoxia. The patient is encouraged about ambulation. Continue physical therapy and occupation therapy. AMERICA MARTINEZ MD CM:PNTRANS [phone] AMERICA BARAJAS MD 02/06/18 0803 interface
--- NOTE | ~2018-01-08 | PR ---
[place], [place] PROGRESS NOTE NAME[id number] UNIT #: [id number] ROOM: 516 DOCTOR: JUAN BARAJAS MD,AMERCIA BIRTHDATE: [birth year] DOS: 01/28/2018 PULMONARY ADDENDUM NOTE SUBJECTIVE: The patient was independently seen and examined in [id number] encounter, noted comfortable at this time without any distress, feeling well with current medical management, was noted afebrile. There were no symptoms of coughing, chest pain, sputum expectoration. The patient was seen independently in [id number] encounter, history was confirmed. Physical examination performed. The assessment and management of the patient was personally completed. Note done by the medical orderly approved. PHYSICAL EXAMINATION: VITAL SIGNS: Normal temperature, respiratory rate 20, heart rate 70, blood pressure 100/61, pulse oxygen saturation recorded as 90% saturation ____. LUNGS: Clear. ABDOMEN: Soft, bowel sounds present. EXTREMITIES: Without any acute edema. LABORATORY DATA: Cultures of the sputum noted toward Pseudomonas aeruginosa and Klebsiella. IMPRESSION: 1. Acute peritonitis with infection caused by MRSA. 2. Resolution of methicillin-resistant Staphylococcus aureus bacteremia. Acute colonization of the upper airway. Gram-negative infection with any signs of active infection. PLAN OF MANAGEMENT: Discharge planning as noted in progress will be continued. No additional changes at this time in the treatment will be necessary. AMERICA MARTINEZ MD CM:PNTRANS [phone] AMERICA BARAJAS MD 01/28/181901 interface
--- NOTE | ~2018-01-08 | PR ---
[place], [place] PROGRESS NOTE NAME[id number] UNIT #: [id number] ROOM: [facility] DOCTOR: JUAN BARAJAS MD,AMERICA BIRTHDATE: [birth year] DOS: 01/16/2018 SUBJECTIVE: The patient was noted comfortable at this time, resting on the bed at this time. He has not been noted with any acute distress this morning. The patient was getting intravenous sedation, intravenous Diprivan. The patient remains intubated. The patient remains on mechanical ventilator, assist control, volume controlled, mechanical ventilation yesterday setting without any changes. The patient was noted with a temperature elevation intermittently to 1 and 1.5 to keep any rectal temporal temperature, oral temperature noted at 99.4 degree Fahrenheit. He does not recorded with suppressive therapy. Adequate urinary output was noted with a negative fluid balance. TPN was continued as well. The patient does not have any bowel movements at this time. The pain management was continued. PHYSICAL EXAMINATION: VITAL SIGNS: The patient shows high temperature 101.5 degree Fahrenheit rectal temperature with a normal temperature intermittently with oral temperature noted T-max of 99.4 degree Fahrenheit, respiratory rate 22-24, heart rate of 90-107, blood pressure 120/70-140/41. Pulse oxygen saturation of the patient noted 40% oxygen 96% saturation. HEENT: Shows patient remained orally intubated. NG tube remains in place with intermittent suction. The patient noted at 2200 mL of drainage of the urine and 831 mL. NECK: Supple. Eyes nonicterus. CARDIOVASCULAR: S1, S2 audible. LUNGS: Noted clear to auscultation bilaterally. ABDOMEN: Still noted distention, absent bowel sounds, status post surgery. EXTREMITIES: Without any acute edema noted today. MUSCULOSKELETAL: Noted without any acute deformities. CENTRAL NERVOUS SYSTEM: The mental status was noted to be appropriate with low dose of sedation. LABORATORY DATA: The patient culture of abdominal fluid noted with evidence of heavy growth of MRSA. Similar organism isolated in the blood. The CMP today, sodium 138, potassium 3.2, phosphorus 1.6, magnesium 2.4, albumin of 1.7. CBC patient of 01/16/2018, WBC count 15.2, hemoglobin 11.1, hematocrit 32.9, platelet count 467,000. The blood culture showed no bacterial growth from 01/13/2018. The arterial blood gas of the patient that was done this morning and 40% oxygen assist control, pH of 7.40, pCO2 of 33.4, pO2 of 110. Chest x-ray that was done this morning, one-view was reviewed, shows small lung volumes noted. Endotracheal tube were noted in proper position. Small basilar areas of atelectasis cannot be excluded in the left lower lobe. Persistent gastritis was noted with bowel dilatation in the abdomen. IMPRESSION: 1. Currently noted with status post surgical intervention colectomy, developed wound dehiscence. 2. Isolation of the MRSA with the abdominal fluid as well. 3. Small lung volumes. 4. Ileus. [place], [place] PROGRESS NOTE NAME: SIRIA GAGE UNIT #: [id number] ROOM: [facility] DOCTOR: AMERICA BRIONES MD BIRTHDATE: [birth year] 5. Acute respiratory failure, multifactorial. 6. Mild respiratory alkalosis as well. 7. Methicillin-resistant Staphylococcus aureus bacteremia. Vancomycin trough level yesterday noted 25.7 mildly above the therapeutic range. 8. Hypokalemia. PLAN OF MANAGEMENT: Continue antibiotic for assessment of acute disease specialist and further medical management according to that. On mechanical ventilator, oxygen will be decreased to 30% oxygen. Peak air pressure, plateau pressure still noted in good treatment for the patient's blood pressure less than 30. Continue assist control, volume control, mechanical ventilation. Continue nutrition support with ventilator bundle management. Usual care, other supportive therapy, plan of management and acute care plan as well. Usual treatment. Additional treatment changes will be made based on progression of the illness. The patient is still not noted a candidate for the patient weaning because of ongoing abdominal problem. The patient's other problems including sepsis. Other problems included continue to supplement electrolytes. Continue medical hyperglycemia with the TPN. Keep the patient negative ____ . Continue the Lasix 20 mg daily. Monitoring the output from the NG tube as well. Other supportive therapy, plan of management and care plan. Usual treatment. Total time in pulmonary critical management was 35 minutes. AMERICA MARTINEZ MD CM:PNTRANS [phone] AMERICA BARAJAS MD 01/16/18 1634 interface
--- NOTE | ~2018-01-08 | PR ---
[place], [place] PROGRESS NOTE [id number] #: [id number] ROOM: [facility]- DOCTOR: LETTY CRUZ MD BIRTHDATE: [birth year] DOS: 01/20/2018 SUBJECTIVE: The patient was seen at his bedside today, 01/20/2018, for followup of SVT and bacteremia with Staphylococcus aureus. He was extubated yesterday and seems to be doing well since then. He is breathing easily and denies any chest discomfort. He has not had any supraventricular tachycardia, but does get appropriate sinus tachycardia whenever he is moved and repositioned or gotten up into a chair. He remains on intravenous beta riley since oral medications are not yet being absorbed. PHYSICAL EXAMINATION: VITAL SIGNS: His pulse is 98 and regular, blood pressure is 142/82. He has a temperature of 99 degrees. He weighs 112.1 kg. HEENT: Normocephalic and atraumatic. NECK: Supple. He has no jugular distention. Carotids are full. There are no bruits. He has no neck or supraclavicular masses. LUNGS: Respirations are unlabored. His chest has decreased breath sounds at the bases. HEART: Has a regular rhythm with an S4 gallop, but no S3 or obvious murmur. ABDOMEN: Bandaged with a binder in place. He does have active bowel sounds today. EXTREMITIES: Showed no edema. I did not see any scleral hemorrhages, Osler nodes or subungual hemorrhages. LABORATORY DATA: Blood cultures from January 16 and January 13 remain negative to date. IMPRESSION: 1. Paroxysmal supraventricular tachycardia and atrial flutter earlier this admission without further recurrences documented. His [id number] score is 1, and therefore the patient is not being considered for long-term anticoagulation. 2. Status post partial colectomy with subsequent dehiscence and reoperation for repair. 3. Postoperative respiratory failure. The patient as tolerated weaning from the ventilator as of 01/19/2018. 4. Prolonged postoperative ileus. 5. History of hypertension. 6. Staphylococcal bacteremia and wound infection. PLAN: We will continue to observe the patient, but thus far he shows no signs of endocarditis. We will defer to his Infectious Disease consultants as to whether or not he will require a transesophageal echocardiogram for management. I thank the hospitalist physicians, Dr. Pepe, for asking our advice regarding the patient's care. [place], [place] PROGRESS NOTE NAME: SIRIA GAGE UNIT #: [id number] ROOM: [facility] DOCTOR: LETTY CRUZ MD BIRTHDATE: [birth year] LETTY CRUZ MD CM:PNTRANS [phone] LETTY CRUZ MD 01/21/18 0146 interface
--- NOTE | ~2018-01-08 | PR ---
[place], [place] PROGRESS NOTE NAME: SIRIA GAGE UNIT #: [id number] ROOM: 516 DOCTOR: AMERICA BRIONES MD BIRTHDATE: [birth year] DOS: 01/26/2018 SUBJECTIVE: The patient noted comfortable at this time, resting in the bed without any acute respiratory distress. She has not been noted any symptoms of chest pain, coughing or any sputum expectoration, comfortable, resting, sitting on the chair. The patient's appetite was noted much better and took all the breakfast this morning that was ordered for this patient. OBJECTIVE: VITAL SIGNS: Normal temperature, respiratory rate 22, blood pressure 129/78. Pulse ox saturation on room air 92% saturation. HEENT: No acute change. NECK: Supple. CARDIOVASCULAR: S1, S2 is audible. LUNGS: Without any wheeze or crackles. ABDOMEN: Soft, nontender. Bowel sounds present. EXTREMITIES: Without any acute edema. LABORATORY DATA: CBC today, WBC count 14.3, hemoglobin 9.1, hematocrit 27.8, platelet count was 539,000. The culture of the sputum preliminary were noted as moderate growth of gram-negative bacilli, pending identification sensitivities. Urine culture noted no bacterial growth. Cultures of the blood noted without any bacterial growths. IMPRESSION: 1. The patient who has been currently noted with gram-negative bacilli isolation sputum culture for this patient were noted. The patient is afebrile with minimal leukocytosis at the present time. 2. The patient resolution of the MRSA bacteremia and improving peritonitis which has been treated current antibiotic treatment. No intention of using the antibiotic has done for gram-negative bacilli. Most likely colonization of the airway, we considered. The patient does spike temperature noted with elevation of the fever and other certainly antibiotic would be considered at that time. Monitor respiratory status. [place], [place] PROGRESS NOTE NAME: SIRIA GAGE UNIT #: [id number] ROOM: 516 DOCTOR: AMERICA BRIONES MD BIRTHDATE: [birth year] AMERICA MARTINEZ MD CM:PNTRANS [id number] AMERICA BARAJAS MD 02/06/18 0811 interface
--- NOTE | ~2018-01-08 | PR ---
[place], [place] PROGRESS NOTE NAME: [facility]IR[facility]AGE [id number] UNIT #: [id number] ROOM: [facility] DOCTOR: JUVE CALERO DO BIRTHDATE: [birth year] DOS: 01/22/2018 SUBJECTIVE: The patient was seen and examined at the bedside. He denies fevers, chills, chest pain, nausea, vomiting, abdominal pain or any changes in bowel or bladder habits. He was able to have a bowel movement since yesterday. He states that his breathing status remains good. He is still experiencing an occasional cough productive for clear sputum, but denies any wheezing. OBJECTIVE: VITAL SIGNS: Show temperature at 99.1 degrees Fahrenheit, heart rate 85, respiratory rate 19, blood pressure 122/73, pulse oximetry 97% on room air. GENERAL APPEARANCE: The patient was awake, alert, responsive, cooperative and in no acute distress. HEENT: Head was normocephalic and atraumatic. No lesions or ulcerations were noted to the eyes. NECK: Trachea appears midline. HEART: Regular rate and rhythm was noted. Positive S1 and S2 sounds were heard. No murmurs, rubs or gallops were appreciated. The bilateral lower extremities were without pitting edema. PULMONARY: Breath sounds were diminished at the lung bases bilaterally. No rhonchi, rales or wheezing were appreciated. ABDOMEN: Bowel sounds were auscultated. The abdomen continues to appear less distended. The abdomen was soft. EXTREMITIES: Bilateral lower extremities are without pitting edema. No clubbing, cyanosis or erythema was noted. The patient was wearing SCDs. LABORATORY DATA: Most recent CBC was from 01/21/2018 and remains unchanged from the dictation done on 01/21/2018. Most recent chemistries from today show sodium at 138, potassium at 3.9, chloride at 101, bicarbonate at 33, BUN at 32, creatinine at 0.75, glucose at 131, calcium at 8.2, phosphorus at 3.2, magnesium at 2.1. In terms of microbiology a stool sample has been obtained for C. difficile screening, but otherwise microbiology remains unchanged from the dictation from yesterday 01/21/2018. IMPRESSION: 1. MRSA peritonitis. 2. Wound dehiscence status post-surgical repair on 01/14/2018. 3. Resolved MRSA bacteremia. 4. Respiratory failure, resolving, status post extubation on 01/19/2018. 5. Obesity. 6. Hyperglycemia. PLAN OF MANAGEMENT: The patient currently remains on bronchodilator therapy 3 times a day. From a respiratory standpoint, the patient is doing well and no changes are needed at this time. The Infectious Disease is also following him. He remains on IV Flagyl and IV Teflaro for his MRSA infection. 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 The patient's diet is advanced also and he is for a full liquid diet today. A followup chest x-ray obtained today shows improvement in his lung volumes. Pulmonary medicine will continue to follow. [place], [place] PROGRESS NOTE NAME: TOOSIRIA UNIT #: [id number] ROOM: [facility] DOCTOR: JUVE CALERO DO BIRTHDATE: [birth year] Juve Calero DO AMERICA MARTINEZ MD CM:CA JUVE CALERO DO 01/22/18 0946 interface
--- NOTE | ~2018-01-08 | PR ---
[place], [place] PROGRESS NOTE NAME: SIRIA GAGE UNIT #: [id number] ROOM: 516 DOCTOR: IDRIS RODRIGUEZ MD BIRTHDATE: [birth year] DOS: 01/24/2018 SUBJECTIVE: The patient has been admitted to the hospital with the wound dehiscence and bacterial infection with MRSA and septicemia with respiratory failure and he is sitting very comfortably on the bedside and his respiratory status has much improved. His vital signs are stable and he is able to eat. He still has a lot of discharge coming from the wound and that we are waiting for his placement to the acute care. LABORATORY DATA: His CBC today showed white count 20,000, hemoglobin 10 grams, hematocrit 29.6 and his basic metabolic profile is essentially normal. OBJECTIVE: VITAL SIGNS: His blood pressure 122/73, pulse 50, respirations 15, temperature 98.1. CHEST: Clear. HEART: Regular. ABDOMEN: Soft. IDRIS RODRIGUEZ MD CM:PNTRANS [id number] IDRIS RODRIGUEZ MD 02/09/18 0713 interface
--- NOTE | ~2018-01-08 | PR ---
[place], [place] PROGRESS NOTE NAME: SIRIA GAGE UNIT #: [id number] ROOM: 516 DOCTOR: JESU MÁRQUEZ MD BIRTHDATE: [birth year] DOS: 01/17/2018 I agree with the assessment and plan made by the nurse practitioner, Sharon Bassett. I reviewed the labs and imaging and made the necessary change in the note. Dalia Márquez MD CM:PNTRANS [phone] JESU MÁRQUEZ MD 02/03/18 0552 interface
--- NOTE | ~2018-01-08 | PR ---
[place], [place] PROGRESS NOTE NAME: SIRIA GAGE UNIT #: [id number] ROOM: [facility] DOCTOR: AMERICA BRIONES MD BIRTHDATE: [birth year] DOS: 01/21/2018 SUBJECTIVE: The patient independently seen and examined, [id number] encounter, history was confirmed. Physical examination performed. Labs reviewed. Note done by the medical records custodian, was approved. The patient has been comfortably sitting on the chair this morning. Denies symptoms of chest pain. Denies symptoms of nausea or vomiting. He has a NG tube, which has been removed and started on the ice chips. Abdominal distention has been decreased significantly. The patient has been noted good bowel movements as well. OBJECTIVE: VITAL SIGNS: Temperature 99.2 degree Fahrenheit to 100 degree Fahrenheit temperature, respiratory rate is 17, heart rate 87, blood pressure 124/64, pulse oxygen saturation recorded as 96% on 2 liters nasal cannula. HEENT: Head was atraumatic. Eyes nonicterus. CARDIOVASCULAR: S1, S2 audible. LUNGS: Without any wheeze or crackles. ABDOMEN: Soft. Bowel sounds present. EXTREMITIES: No edema. LABORATORY DATA: Blood cultures, 01/16/2018, no bacterial growth. CBC today: WBC count 17.5, hemoglobin 10.8, platelet 456,000. CMP: BUN 32, creatinine normal, glucose 131, CO2 of 34. Anaerobic cultures from the abdominal cavity fluid was also noted positive. IMPRESSION: 1. Polymicrobial infection with anaerobic infection as well as MRSA with acute peritonitis bacteremia was also noted with MRSA, currently resolved. 2. Acute respiratory failure, progressively resolving, decrease oxygen requirement. PLAN OF TREATMENT: No change from pulmonary standpoint. Continue current therapy plan as in progress. Usual care, other supportive plan of therapy and care. [place], [place] PROGRESS NOTE NAME: SIRIA GAGE UNIT #: [id number] ROOM: [facility] DOCTOR: AMERICA BRIONES MD BIRTHDATE: [birth year] AMERICA MARTINEZ MD CM:PNTRANS [id number] AMERICA BARAJAS MD 01/21/18 1701 interface
--- NOTE | ~2018-01-08 | PR ---
[place], [place] PROGRESS NOTE NAME: SIRIA GAGE [facility] #: [id number] UNIT #: [id number] ROOM: [facility] DOCTOR: LETTY CRUZ MD BIRTHDATE: [birth year] DOS: 01/18/2018 CARDIOLOGY PROGRESS NOTE SUBJECTIVE: The patient was seen at his bedside today 01/18/2018 in the Intensive Care Unit. He remains sedated and on a ventilator, but is arousable and does respond appropriately. We are seeing him for episodes of SVT and a blood culture that was positive for Staphylococcus aureus. He is in the hospital for dehiscence following a partial colectomy. The patient's vital signs have remained stable and he has not had any tachyarrhythmias for the last few days. PHYSICAL EXAMINATION: VITAL SIGNS: His pulse is 84 and regular, blood pressure is 112/76. He is afebrile. He weighs 112.1 kilograms. NECK: Supple. He has no jugular distention. Sclerae are clear and there are no scleral hemorrhages. His oral mucosa is moist. He is orally intubated. His neck is supple. He has no jugular distention. Carotids are full. LUNGS: Respirations are per ventilator. He has decreased breath sounds at the bases. HEART: Has a regular rhythm with an S4 gallop, but no S3 or apparent murmur. The PMI is not displaced. ABDOMEN: Wrapped. Bowel sounds are essentially absent to my examination. EXTREMITIES: Bandaged, but showed no edema. His fingers showed no Osler's nodes or subungual hemorrhages. LABORATORY DATA: Hemoglobin is 11.1, hematocrit 32.9, white count 15.2 thousand as of 01/16/2018. Sodium today is 139, potassium 3.5, BUN 28, creatinine 0.68. IMPRESSION: 1. Paroxysmal supraventricular tachycardia and atrial flutter earlier this admission. No further recurrence documented. A CHADS-VASc score is 1 and therefore long-term anticoagulation is not currently indicated. 2. Status post partial colectomy with subsequent dehiscence and reoperation for repair. 3. Postoperative respiratory failure, on ventilator. 4. Prolonged postoperative ileus. 5. History of hypertension. 6. Staphylococcus bacteremia. Most recent blood cultures drawn on 01/16/2018 have been negative to date. PLAN: We will continue his current medical management and observation. We will defer to his Infectious Disease consultants as to whether or not he will require further assessment such as transesophageal echocardiography. I thank the hospitalist physicians and Dr. Pepe for asking our advice regarding his care. [place], [place] PROGRESS NOTE NAME: SIRIA GAGE UNIT #: [id number] ROOM: [facility] DOCTOR: LETTY CRUZ MD BIRTHDATE: [birth year] LETTY CRUZ MD CM:PNTRANS [phone] [id number] LETTY CRUZ MD 01/18/182209 interface
--- NOTE | ~2018-01-08 | PR ---
[place], [place] PROGRESS NOTE NAME: SIRIA GAGE UNIT #: [id number] ROOM: [facility] DOCTOR: MICHAEL SUÁREZ,IDRIS Thayer BIRTHDATE: [birth year] DOS: SUBJECTIVE: The patient has been admitted to hospital with wound dehiscence and bacterial infection and septicemia with MRSA infection. The patient is gradually getting better. He is eating fairly good. He has bowel movement. No nausea. No vomiting. No chest pain. No difficulty in breathing. The patient's basic metabolic profile shows glucose 106, BUN 33, creatinine 1.44, GFR 50, calcium is 8.3, other values are normal. Urine culture and sensitivity did not grow any bacteria and blood culture and sensitivity did not grow any bacteria. OBJECTIVE: VITAL SIGNS: Blood pressure is 106/69, pulse 57, respirations 12, temperature 98.7. CHEST: Conscious, alert and oriented and is improving. IDRIS RODRIGUEZ MD CM:PNTRANS [phone] IDRIS RODRIGUEZ MD 01/25/18 1333 interface
[2018-01-08 20:34] VITALS: BP 133/71
[2018-01-08 21:10] VITALS: BP 116/80
[2018-01-08 21:21] LABS: BASO % 0.1 % (0.0-1.0); EOS % 0.1 % (1.0-4.0); HEMATOCRIT 38.7 % (42.0-52.0); HEMOGLOBIN 12.8 g/dl (14.0-18.0); LYMPH # 0.7 10*3/uL (1.3-4.4); LYMPH % 4.4 % (27.0-41.0); MEAN CELL VOLUME 87.8 fl (80.0-94.0); MEAN CORPUSCULAR HGB CONC 33.1 g/dl (33.0-37.0); MEAN PLATELET VOLUME 9.5 fl (9.6-12.3); MONO # 1.4 10*3/uL (0.1-1.0); MONO % 9.1 % (3.0-9.0); NEUT # 12.8 10*3/uL (2.3-7.9); PLATELET COUNT AUTOMATED 383 10*3/uL (130-400); RED BLOOD COUNT 4.41 10*6/uL (4.50-5.90); RED CELL DISTRI WIDTH 14.9 % (0-14.5); WHITE BLOOD COUNT 14.8 10*3/uL (4.8-10.8)
[2018-01-08 21:37] LABS: BILIRUBIN 1+ (NEGATIVE); BLOOD TRACE-LYSED (NEGATIVE); CLARITY SL CLOUDY (CLEAR); COLOR YELLOW (YELLOW); GLUCOSE NEGATIVE (NEGATIVE); KETONE 2+ (NEGATIVE); LEUKO ESTERASE NEGATIVE (NEGATIVE); NITRITE NEGATIVE (NEGATIVE); SPECIFIC GRAVITY 1.025 (1.005-1.030)
[2018-01-08 21:38] LABS: ALBUMIN 2.5 gm/dl (3.1-4.5); ALKALINE PHOSPHATASE 123 U/L (45-117); BUN 15 mg/dl (7-24); CHLORIDE 101 mmol/L (98-107); CREATININE 0.79 mg/dL (0.70-1.30); LIPASE 75 U/L (73-393); POTASSIUM 3.7 mmol/L (3.5-5.1); SGOT/AST 13 IU/L (3-35); SGPT/ALT 27 U/L (12-78); SODIUM 135 mmol/L (136-145); TOTAL PROTEIN 6.4 gm/dL (6.4-8.2)
[2018-01-08 21:50] VITALS: BP 122/74
[2018-01-08 21:54] LABS: BACTERIA TRACE; EPITHELIAL CELLS 0-2; MUCOUS 3+; WBC 0-2 wbc/hpf (0-5)
[2018-01-08 23:33] VITALS: BP 136/83
[2018-01-09 06:37] LABS: HEMATOCRIT 39.8 % (42.0-52.0); MEAN CELL VOLUME 88.1 fl (80.0-94.0); MEAN CORPUSCULAR HGB 28.8 pg (27.0-31.0); MEAN CORPUSCULAR HGB CONC 32.7 g/dl (33.0-37.0); MEAN PLATELET VOLUME 9.9 fl (9.6-12.3); PLATELET COUNT AUTOMATED 406 10*3/uL (130-400); RED BLOOD COUNT 4.52 10*6/uL (4.50-5.90); RED CELL DISTRI WIDTH 14.9 % (0-14.5); WHITE BLOOD COUNT 13.2 10*3/uL (4.8-10.8)
[2018-01-09 06:41] LABS: ALBUMIN 2.5 gm/dl (3.1-4.5); ALKALINE PHOSPHATASE 118 U/L (45-117); BUN 18 mg/dl (7-24); CHLORIDE 102 mmol/L (98-107); CREATININE 0.79 mg/dL (0.70-1.30); POTASSIUM 3.4 mmol/L (3.5-5.1); SGOT/AST 12 IU/L (3-35); SGPT/ALT 24 U/L (12-78); SODIUM 136 mmol/L (136-145); TOTAL PROTEIN 6.1 gm/dL (6.4-8.2)
[2018-01-09 07:28] LABS: ATYPICAL LYMPHS 1 % (0-0); BURR CELLS FEW; PLATELET SUFFICIENCY HIGH (NORMAL); TOTAL CELLS COUNTED 100 #CELLS
[2018-01-09 12:00] VITALS: BP 110/81
[2018-01-09 16:00] VITALS: BP 136/86
[2018-01-09 20:00] VITALS: BP 136/82
[2018-01-10] VITALS: BP 133/82
[2018-01-10] MEDS ORDERED: Percocet 325 MG1 TAB PO (01:09)
[2018-01-10 08:00] VITALS: BP 138/88
[2018-01-10 12:00] VITALS: BP 133/89
[2018-01-10 16:00] VITALS: BP 134/71
[2018-01-10 20:00] VITALS: BP 129/83
[2018-01-11] VITALS: BP 136/78
[2018-01-11 08:00] VITALS: BP 130/81
[2018-01-11 08:29] LABS: BASO % 0.1 % (0.0-1.0); HEMATOCRIT 37.7 % (42.0-52.0); HEMOGLOBIN 12.6 g/dl (14.0-18.0); LYMPH # 0.7 10*3/uL (1.3-4.4); LYMPH % 8.7 % (27.0-41.0); MEAN CELL VOLUME 86.7 fl (80.0-94.0); MEAN CORPUSCULAR HGB CONC 33.4 g/dl (33.0-37.0); MEAN PLATELET VOLUME 9.3 fl (9.6-12.3); MONO # 1.2 10*3/uL (0.1-1.0); MONO % 14.3 % (3.0-9.0); NEUT # 6.4 10*3/uL (2.3-7.9); NEUT % 76.5 % (47.0-73.0); PLATELET COUNT AUTOMATED 459 10*3/uL (130-400); RED BLOOD COUNT 4.35 10*6/uL (4.50-5.90); RED CELL DISTRI WIDTH 14.7 % (0-14.5); WHITE BLOOD COUNT 8.4 10*3/uL (4.8-10.8)
[2018-01-11 08:50] LABS: BUN 21 mg/dl (7-24); CHLORIDE 100 mmol/L (98-107); CREATININE 0.75 mg/dL (0.70-1.30); POTASSIUM 3.2 mmol/L (3.5-5.1); SODIUM 134 mmol/L (136-145)
[2018-01-11 12:00] VITALS: BP 116/66
[2018-01-11 16:00] VITALS: BP 137/68
[2018-01-11 20:00] VITALS: BP 143/67
[2018-01-12] VITALS: BP 138/71
[2018-01-12 08:00] VITALS: BP 132/74
[2018-01-12 08:05] VITALS: BP 126/78
[2018-01-12 12:00] VITALS: BP 140/72
[2018-01-12 12:20] LABS: BASO % 0.1 % (0.0-1.0); HEMATOCRIT 38.5 % (42.0-52.0); LYMPH # 0.8 10*3/uL (1.3-4.4); LYMPH % 8.5 % (27.0-41.0); MEAN CELL VOLUME 84.8 fl (80.0-94.0); MEAN CORPUSCULAR HGB 28.6 pg (27.0-31.0); MEAN CORPUSCULAR HGB CONC 33.8 g/dl (33.0-37.0); MONO % 10.8 % (3.0-9.0); NEUT # 7.4 10*3/uL (2.3-7.9); NEUT % 79.6 % (47.0-73.0); PLATELET COUNT AUTOMATED 452 10*3/uL (130-400); RED BLOOD COUNT 4.54 10*6/uL (4.50-5.90); RED CELL DISTRI WIDTH 14.5 % (0-14.5); WHITE BLOOD COUNT 9.3 10*3/uL (4.8-10.8)
[2018-01-12 12:36] LABS: ALBUMIN 2.2 gm/dl (3.1-4.5); ALKALINE PHOSPHATASE 93 U/L (45-117); BUN 21 mg/dl (7-24); CHLORIDE 96 mmol/L (98-107); CREATININE 0.73 mg/dL (0.70-1.30); POTASSIUM 2.6 mmol/L (3.5-5.1); SGOT/AST 24 IU/L (3-35); SGPT/ALT 33 U/L (12-78); SODIUM 129 mmol/L (136-145); TOTAL PROTEIN 5.7 gm/dL (6.4-8.2)
[2018-01-12 16:00] VITALS: BP 101/70
[2018-01-12 20:00] VITALS: BP 123/68
[2018-01-13] VITALS: BP 128/72
[2018-01-13 06:18] LABS: BASO % 0.2 % (0.0-1.0); EOS % 0.1 % (1.0-4.0); HEMATOCRIT 37.8 % (42.0-52.0); HEMOGLOBIN 12.8 g/dl (14.0-18.0); MEAN CELL VOLUME 85.1 fl (80.0-94.0); MEAN CORPUSCULAR HGB 28.8 pg (27.0-31.0); MEAN CORPUSCULAR HGB CONC 33.9 g/dl (33.0-37.0); MEAN PLATELET VOLUME 9.2 fl (9.6-12.3); MONO # 0.9 10*3/uL (0.1-1.0); MONO % 9.9 % (3.0-9.0); NEUT # 7.4 10*3/uL (2.3-7.9); NEUT % 78.3 % (47.0-73.0); PLATELET COUNT AUTOMATED 462 10*3/uL (130-400); RED BLOOD COUNT 4.44 10*6/uL (4.50-5.90); RED CELL DISTRI WIDTH 14.6 % (0-14.5); WHITE BLOOD COUNT 9.5 10*3/uL (4.8-10.8)
[2018-01-13 06:40] LABS: BUN 26 mg/dl (7-24); CHLORIDE 97 mmol/L (98-107); CREATININE 0.83 mg/dL (0.70-1.30); FREE T4 1.06 ng/dl (0.76-1.46); PHOSPHOROUS 2.8 mg/dL (2.5-4.9); POTASSIUM 2.5 mmol/L (3.5-5.1); SODIUM 131 mmol/L (136-145)
[2018-01-13 06:47] LABS: THYROID STIM HORMONE (HS) 0.154 uIU/ml (0.358-4.75)
[2018-01-13 08:00] VITALS: BP 108/76
[2018-01-13 12:00] VITALS: BP 112/74
[2018-01-13 13:17] LABS: BILIRUBIN NEGATIVE (NEGATIVE); BLOOD NEGATIVE (NEGATIVE); CLARITY SL CLOUDY (CLEAR); COLOR YELLOW (YELLOW); GLUCOSE NEGATIVE (NEGATIVE); KETONE 1+ (NEGATIVE); LEUKO ESTERASE NEGATIVE (NEGATIVE); NITRITE NEGATIVE (NEGATIVE); PH 6.5 (5.0-9.0); SPECIFIC GRAVITY 1.015 (1.005-1.030); UROBILINOGEN 0.2 E.U./dl (0.2-1.0)
[2018-01-13 13:23] LABS: BACTERIA 3+; EPITHELIAL CELLS 0-2
[2018-01-13 16:00] VITALS: BP 105/52
[2018-01-13 20:00] VITALS: BP 135/68
[2018-01-14] VITALS (9 sets, daily range): BP systolic 90–137; BP diastolic 34–79
[2018-01-14 06:22] LABS: BUN 24 mg/dl (7-24); CHLORIDE 99 mmol/L (98-107); CREATININE 0.83 mg/dL (0.70-1.30); POTASSIUM 3.4 mmol/L (3.5-5.1); SODIUM 132 mmol/L (136-145)
[2018-01-14 06:26] LABS: HEMATOCRIT 38.5 % (42.0-52.0); HEMOGLOBIN 12.9 g/dl (14.0-18.0); MEAN CELL VOLUME 85.6 fl (80.0-94.0); MEAN CORPUSCULAR HGB 28.7 pg (27.0-31.0); MEAN CORPUSCULAR HGB CONC 33.5 g/dl (33.0-37.0); MEAN PLATELET VOLUME 9.4 fl (9.6-12.3); PLATELET COUNT AUTOMATED 572 10*3/uL (130-400); RED CELL DISTRI WIDTH 14.6 % (0-14.5)
[2018-01-14 07:01] LABS: BURR CELLS MODERATE; TOTAL CELLS COUNTED 100 #CELLS
[2018-01-14 07:02] LABS: PLATELET SUFFICIENCY HIGH (NORMAL); TOXIC GRANULATION SLIGHT
[2018-01-14 12:18] LABS: ABG O2 SATURATION 94.2 % (95-97); ARTERIAL BLOOD GAS PCO2 38.3 mmHg (35-45); ARTERIAL BLOOD GAS PH 7.263 (7.35-7.45); ARTERIAL BLOOD GAS PO2 81.5 mmHg (80-90)
[2018-01-14 12:57] LABS: ABG BASE EXCESS -9.4 mmol/L (-2.0-2.0)
[2018-01-14 16:12] LABS: ABG BASE EXCESS -8.4 mmol/L (-2.0-2.0); ABG HCO3 15.6 mmol/l (22-26); ABG O2 SATURATION 96.1 % (95-97); ARTERIAL BLOOD GAS PCO2 27.3 mmHg (35-45); ARTERIAL BLOOD GAS PH 7.369 (7.35-7.45); ARTERIAL BLOOD GAS PO2 93.1 mmHg (80-90)
[2018-01-15] VITALS (12 sets, daily range): BP systolic 91–140; BP diastolic 41–72
[2018-01-15 04:33] LABS: HEMOGLOBIN 10.9 g/dl (14.0-18.0); MEAN CELL VOLUME 85.7 fl (80.0-94.0); MEAN CORPUSCULAR HGB 28.9 pg (27.0-31.0); MEAN CORPUSCULAR HGB CONC 33.7 g/dl (33.0-37.0); MEAN PLATELET VOLUME 9.1 fl (9.6-12.3); PLATELET COUNT AUTOMATED 416 10*3/uL (130-400); RED BLOOD COUNT 3.77 10*6/uL (4.50-5.90); WHITE BLOOD COUNT 11.5 10*3/uL (4.8-10.8)
[2018-01-15 04:46] LABS: HEMATOCRIT 32.3 % (42.0-52.0)
[2018-01-15 05:11] LABS: PLATELET SUFFICIENCY HIGH (NORMAL); POLYCHROMASIA SLIGHT; TOTAL CELLS COUNTED 100 #CELLS
[2018-01-15 05:12] LABS: BURR CELLS FEW; OVALOCYTES FEW
[2018-01-15 05:16] LABS: ALBUMIN 1.9 gm/dl (3.1-4.5); ALKALINE PHOSPHATASE 74 U/L (45-117); BILIRUBIN, DIRECT 0.1 mg/dL (0.0-0.2); BUN 30 mg/dl (7-24); CHLORIDE 104 mmol/L (98-107); CREATININE 0.98 mg/dL (0.70-1.30); PHOSPHOROUS 1.9 mg/dL (2.5-4.9); POTASSIUM 3.1 mmol/L (3.5-5.1); POTASSIUM 3.2 mmol/L (3.5-5.1); SGOT/AST 20 IU/L (3-35); SGPT/ALT 25 U/L (12-78); SODIUM 136 mmol/L (136-145); TOTAL PROTEIN 4.7 gm/dL (6.4-8.2)
[2018-01-15 05:18] LABS: TOTAL PROTEIN 4.7 gm/dL (6.4-8.2)
[2018-01-15 11:03] LABS: ABG BASE EXCESS -1.7 mmol/L (-2.0-2.0); ABG HCO3 20.4 mmol/l (22-26); ARTERIAL BLOOD GAS PH 7.466 (7.35-7.45); ARTERIAL BLOOD GAS PO2 90.8 mmHg (80-90)
[2018-01-16] VITALS (12 sets, daily range): BP systolic 110–139; BP diastolic 50–78
[2018-01-16 05:43] LABS: ALBUMIN 1.7 gm/dl (3.1-4.5); ALKALINE PHOSPHATASE 84 U/L (45-117); BILIRUBIN, DIRECT < 0.1 mg/dL (0.0-0.2); CHLORIDE 105 mmol/L (98-107); PHOSPHOROUS 1.6 mg/dL (2.5-4.9); POTASSIUM 3.2 mmol/L (3.5-5.1); SGOT/AST 27 IU/L (3-35); SGPT/ALT 25 U/L (12-78); SODIUM 138 mmol/L (136-145); TOTAL PROTEIN 4.8 gm/dL (6.4-8.2)
[2018-01-16 06:30] LABS: HEMATOCRIT 32.9 % (42.0-52.0); HEMOGLOBIN 11.1 g/dl (14.0-18.0); MEAN CELL VOLUME 84.6 fl (80.0-94.0); MEAN CORPUSCULAR HGB 28.5 pg (27.0-31.0); MEAN CORPUSCULAR HGB CONC 33.7 g/dl (33.0-37.0); MEAN PLATELET VOLUME 9.6 fl (9.6-12.3); NUCLEATED RED BLOOD CELL 0.1 % (0.0-0.0); PLATELET COUNT AUTOMATED 467 10*3/uL (130-400); RED BLOOD COUNT 3.89 10*6/uL (4.50-5.90); RED CELL DISTRI WIDTH 15.2 % (0-14.5); WHITE BLOOD COUNT 15.2 10*3/uL (4.8-10.8)
[2018-01-16 07:20] LABS: TOTAL CELLS COUNTED 100 #CELLS
[2018-01-16 07:21] LABS: BURR CELLS FEW; PLATELET SUFFICIENCY HIGH (NORMAL)
[2018-01-16 08:55] LABS: ABG BASE EXCESS 2.2 mmol/L (-2.0-2.0); ABG HCO3 24.6 mmol/l (22-26); ABG O2 SATURATION 98.3 % (95-97); ARTERIAL BLOOD GAS PCO2 33.4 mmHg (35-45); ARTERIAL BLOOD GAS PH 7.484 (7.35-7.45)
[2018-01-17] VITALS (12 sets, daily range): BP systolic 103–131; BP diastolic 68–80
[2018-01-17 06:02] LABS: ALBUMIN 1.6 gm/dl (3.1-4.5); ALKALINE PHOSPHATASE 107 U/L (45-117); BILIRUBIN, DIRECT 0.1 mg/dL (0.0-0.2); BUN 31 mg/dl (7-24); CHLORIDE 103 mmol/L (98-107); CREATININE 0.65 mg/dL (0.70-1.30); PHOSPHOROUS 2.7 mg/dL (2.5-4.9); POTASSIUM 3.5 mmol/L (3.5-5.1); SGOT/AST 30 IU/L (3-35); SGPT/ALT 28 U/L (12-78); SODIUM 139 mmol/L (136-145)
[2018-01-17 07:30] LABS: ABG BASE EXCESS 2.9 mmol/L (-2.0-2.0); ABG HCO3 25.4 mmol/l (22-26); ABG O2 SATURATION 95.4 % (95-97); ARTERIAL BLOOD GAS PCO2 33.7 mmHg (35-45); ARTERIAL BLOOD GAS PH 7.492 (7.35-7.45); ARTERIAL BLOOD GAS PO2 82.2 mmHg (80-90)
[2018-01-18] VITALS (12 sets, daily range): BP systolic 108–129; BP diastolic 68–80
[2018-01-18 03:42] LABS: ALBUMIN 1.5 gm/dl (3.1-4.5); BUN 28 mg/dl (7-24); CHLORIDE 101 mmol/L (98-107); CREATININE 0.68 mg/dL (0.70-1.30); PHOSPHOROUS 2.7 mg/dL (2.5-4.9); POTASSIUM 3.5 mmol/L (3.5-5.1); SODIUM 139 mmol/L (136-145)
[2018-01-18 08:14] LABS: ABG BASE EXCESS 6.4 mmol/L (-2.0-2.0); ABG HCO3 29.7 mmol/l (22-26); ABG O2 SATURATION 97.4 % (95-97); ARTERIAL BLOOD GAS PCO2 39.7 mmHg (35-45); ARTERIAL BLOOD GAS PH 7.489 (7.35-7.45); ARTERIAL BLOOD GAS PO2 84.4 mmHg (80-90)
[2018-01-19] VITALS (8 sets, daily range): BP systolic 113–142; BP diastolic 72–85
[2018-01-19 03:47] LABS: HEMATOCRIT 32.5 % (42.0-52.0); HEMOGLOBIN 10.8 g/dl (14.0-18.0); MEAN CELL VOLUME 86.7 fl (80.0-94.0); MEAN CORPUSCULAR HGB 28.8 pg (27.0-31.0); MEAN CORPUSCULAR HGB CONC 33.2 g/dl (33.0-37.0); MEAN PLATELET VOLUME 8.9 fl (9.6-12.3); PLATELET COUNT AUTOMATED 412 10*3/uL (130-400); RED BLOOD COUNT 3.75 10*6/uL (4.50-5.90); RED CELL DISTRI WIDTH 15.3 % (0-14.5); WHITE BLOOD COUNT 16.1 10*3/uL (4.8-10.8)
[2018-01-19 04:07] LABS: MICROCYTOSIS SLIGHT; PLATELET SUFFICIENCY HIGH (NORMAL); TOTAL CELLS COUNTED 100 #CELLS
[2018-01-19 07:27] LABS: ABG BASE EXCESS 7.5 mmol/L (-2.0-2.0); ABG HCO3 30.7 mmol/l (22-26); ABG O2 SATURATION 97.3 % (95-97); ARTERIAL BLOOD GAS PCO2 37.6 mmHg (35-45); ARTERIAL BLOOD GAS PH 7.521 (7.35-7.45); ARTERIAL BLOOD GAS PO2 88.3 mmHg (80-90)
[2018-01-19 11:41] LABS: ALBUMIN 1.7 gm/dl (3.1-4.5); ALKALINE PHOSPHATASE 136 U/L (45-117); BUN 30 mg/dl (7-24); CHLORIDE 98 mmol/L (98-107); CREATININE 0.79 mg/dL (0.70-1.30); PHOSPHOROUS 2.9 mg/dL (2.5-4.9); POTASSIUM 3.7 mmol/L (3.5-5.1); SGOT/AST 31 IU/L (3-35); SGPT/ALT 31 U/L (12-78); SODIUM 139 mmol/L (136-145); TOTAL PROTEIN 5.4 gm/dL (6.4-8.2)
[2018-01-20] VITALS: BP 124/77
[2018-01-20 04:00] VITALS: BP 142/82
[2018-01-20 05:58] LABS: HEMATOCRIT 32.4 % (42.0-52.0); HEMOGLOBIN 10.8 g/dl (14.0-18.0); MEAN CELL VOLUME 85.7 fl (80.0-94.0); MEAN CORPUSCULAR HGB 28.6 pg (27.0-31.0); MEAN CORPUSCULAR HGB CONC 33.3 g/dl (33.0-37.0); PLATELET COUNT AUTOMATED 429 10*3/uL (130-400); RED BLOOD COUNT 3.78 10*6/uL (4.50-5.90); RED CELL DISTRI WIDTH 15.3 % (0-14.5); WHITE BLOOD COUNT 18.7 10*3/uL (4.8-10.8)
[2018-01-20 06:13] LABS: ALBUMIN 1.7 gm/dl (3.1-4.5); ALKALINE PHOSPHATASE 155 U/L (45-117); BUN 31 mg/dl (7-24); CHLORIDE 100 mmol/L (98-107); CREATININE 0.65 mg/dL (0.70-1.30); PHOSPHOROUS 3.2 mg/dL (2.5-4.9); POTASSIUM 3.8 mmol/L (3.5-5.1); SGOT/AST 35 IU/L (3-35); SGPT/ALT 33 U/L (12-78); SODIUM 141 mmol/L (136-145); TOTAL PROTEIN 5.3 gm/dL (6.4-8.2)
[2018-01-20 06:54] LABS: PLATELET SUFFICIENCY HIGH (NORMAL); TOTAL CELLS COUNTED 100 #CELLS
[2018-01-20 08:00] VITALS: BP 160/82
[2018-01-20 11:58] VITALS: BP 130/83
[2018-01-20 15:56] VITALS: BP 116/74
[2018-01-20 20:00] VITALS: BP 128/80
[2018-01-21] VITALS: BP 117/73
[2018-01-21 04:00] VITALS: BP 140/63
[2018-01-21 04:20] LABS: HEMATOCRIT 32.7 % (42.0-52.0); HEMOGLOBIN 10.8 g/dl (14.0-18.0); MEAN CELL VOLUME 85.2 fl (80.0-94.0); MEAN CORPUSCULAR HGB 28.1 pg (27.0-31.0); MEAN PLATELET VOLUME 8.8 fl (9.6-12.3); PLATELET COUNT AUTOMATED 456 10*3/uL (130-400); RED BLOOD COUNT 3.84 10*6/uL (4.50-5.90); RED CELL DISTRI WIDTH 15.4 % (0-14.5); WHITE BLOOD COUNT 17.5 10*3/uL (4.8-10.8)
[2018-01-21 04:40] LABS: ALBUMIN 1.7 gm/dl (3.1-4.5); ALKALINE PHOSPHATASE 162 U/L (45-117); BUN 33 mg/dl (7-24); CHLORIDE 99 mmol/L (98-107); CREATININE 0.73 mg/dL (0.70-1.30); PHOSPHOROUS 3.1 mg/dL (2.5-4.9); POTASSIUM 3.7 mmol/L (3.5-5.1); PREALBUMIN 21 mg/dl (20-40); SGOT/AST 28 IU/L (3-35); SGPT/ALT 31 U/L (12-78); SODIUM 138 mmol/L (136-145); TOTAL PROTEIN 5.3 gm/dL (6.4-8.2)
[2018-01-21 05:08] LABS: PLATELET SUFFICIENCY NORMAL (NORMAL); TOTAL CELLS COUNTED 100 #CELLS
[2018-01-21 05:09] LABS: POLYCHROMASIA SLIGHT
[2018-01-21 08:00] VITALS: BP 110/75
[2018-01-21 12:00] VITALS: BP 126/64
[2018-01-21 16:00] VITALS: BP 122/72
[2018-01-21 20:00] VITALS: BP 125/77
[2018-01-22] VITALS: BP 118/69
[2018-01-22 04:00] VITALS: BP 118/76
[2018-01-22 05:56] LABS: BUN 32 mg/dl (7-24); CHLORIDE 101 mmol/L (98-107); CREATININE 0.75 mg/dL (0.70-1.30); PHOSPHOROUS 3.2 mg/dL (2.5-4.9); POTASSIUM 3.9 mmol/L (3.5-5.1); SODIUM 138 mmol/L (136-145)
[2018-01-22 08:00] VITALS: BP 122/73
[2018-01-22 10:32] LABS: BASO % 0.2 % (0.0-1.0); EOS # 0.1 10*3/uL (0.0-0.4); EOS % 0.6 % (1.0-4.0); HEMATOCRIT 32.7 % (42.0-52.0); HEMOGLOBIN 10.6 g/dl (14.0-18.0); LYMPH # 0.9 10*3/uL (1.3-4.4); LYMPH % 5.2 % (27.0-41.0); MEAN CELL VOLUME 86.5 fl (80.0-94.0); MEAN CORPUSCULAR HGB CONC 32.4 g/dl (33.0-37.0); MEAN PLATELET VOLUME 9.4 fl (9.6-12.3); MONO # 1.4 10*3/uL (0.1-1.0); MONO % 8.4 % (3.0-9.0); NEUT # 14.4 10*3/uL (2.3-7.9); PLATELET COUNT AUTOMATED 476 10*3/uL (130-400); RED BLOOD COUNT 3.78 10*6/uL (4.50-5.90); RED CELL DISTRI WIDTH 15.5 % (0-14.5); WHITE BLOOD COUNT 17.2 10*3/uL (4.8-10.8)
[2018-01-22 12:00] VITALS: BP 136/74
[2018-01-22 16:04] VITALS: BP 122/55
[2018-01-22 20:00] VITALS: BP 109/77
[2018-01-23] VITALS: BP 111/70
[2018-01-23 04:00] VITALS: BP 125/74
[2018-01-23 06:06] LABS: ALBUMIN 1.9 gm/dl (3.1-4.5); ALKALINE PHOSPHATASE 141 U/L (45-117); BUN 28 mg/dl (7-24); CHLORIDE 103 mmol/L (98-107); SGOT/AST 17 IU/L (3-35); SGPT/ALT 25 U/L (12-78); SODIUM 139 mmol/L (136-145); TOTAL PROTEIN 5.6 gm/dL (6.4-8.2)
[2018-01-23 06:46] LABS: BASO % 0.2 % (0.0-1.0); EOS # 0.1 10*3/uL (0.0-0.4); EOS % 0.6 % (1.0-4.0); HEMOGLOBIN 10.1 g/dl (14.0-18.0); LYMPH # 0.8 10*3/uL (1.3-4.4); LYMPH % 4.7 % (27.0-41.0); MEAN CELL VOLUME 86.8 fl (80.0-94.0); MEAN CORPUSCULAR HGB 28.3 pg (27.0-31.0); MEAN CORPUSCULAR HGB CONC 32.6 g/dl (33.0-37.0); MEAN PLATELET VOLUME 10.3 fl (9.6-12.3); MONO # 1.5 10*3/uL (0.1-1.0); MONO % 8.3 % (3.0-9.0); NEUT # 14.9 10*3/uL (2.3-7.9); NEUT % 85.1 % (47.0-73.0); PLATELET COUNT AUTOMATED 334 10*3/uL (130-400); RED BLOOD COUNT 3.57 10*6/uL (4.50-5.90); RED CELL DISTRI WIDTH 15.5 % (0-14.5); WHITE BLOOD COUNT 17.5 10*3/uL (4.8-10.8)
[2018-01-23 08:00] VITALS: BP 147/83
[2018-01-23 11:50] LABS: BILIRUBIN NEGATIVE (NEGATIVE); BLOOD NEGATIVE (NEGATIVE); CLARITY CLEAR (CLEAR); COLOR YELLOW (YELLOW); GLUCOSE NEGATIVE (NEGATIVE); KETONE NEGATIVE (NEGATIVE); LEUKO ESTERASE NEGATIVE (NEGATIVE); NITRITE NEGATIVE (NEGATIVE); UROBILINOGEN 0.2 E.U./dl (0.2-1.0)
[2018-01-23 12:00] VITALS: BP 144/85
[2018-01-23 12:37] LABS: BACTERIA TRACE
[2018-01-23 20:00] VITALS: BP 138/86
[2018-01-24] VITALS: BP 133/79
[2018-01-24 04:00] VITALS: BP 122/73
[2018-01-24 06:12] LABS: BASO % 0.1 % (0.0-1.0); EOS # 0.1 10*3/uL (0.0-0.4); EOS % 0.3 % (1.0-4.0); HEMATOCRIT 29.6 % (42.0-52.0); LYMPH # 0.8 10*3/uL (1.3-4.4); LYMPH % 4.1 % (27.0-41.0); MEAN CELL VOLUME 84.6 fl (80.0-94.0); MEAN CORPUSCULAR HGB 28.6 pg (27.0-31.0); MEAN CORPUSCULAR HGB CONC 33.8 g/dl (33.0-37.0); MEAN PLATELET VOLUME 9.6 fl (9.6-12.3); MONO # 1.4 10*3/uL (0.1-1.0); MONO % 7.1 % (3.0-9.0); NEUT # 17.7 10*3/uL (2.3-7.9); NEUT % 87.6 % (47.0-73.0); RED CELL DISTRI WIDTH 15.6 % (0-14.5); WHITE BLOOD COUNT 20.3 10*3/uL (4.8-10.8)
[2018-01-24 06:13] LABS: PLATELET COUNT AUTOMATED 496 10*3/uL (130-400)
[2018-01-24 06:29] LABS: BUN 26 mg/dl (7-24); CHLORIDE 102 mmol/L (98-107); CREATININE 1.07 mg/dL (0.70-1.30); PHOSPHOROUS 3.4 mg/dL (2.5-4.9); POTASSIUM 3.8 mmol/L (3.5-5.1); SODIUM 138 mmol/L (136-145)
[2018-01-24 08:00] VITALS: BP 110/71
[2018-01-24 12:00] VITALS: BP 103/68
[2018-01-24 16:00] VITALS: BP 114/72
[2018-01-24 20:00] VITALS: BP 111/75
[2018-01-25] VITALS: BP 111/74
[2018-01-25 03:12] VITALS: BP 106/69
[2018-01-25 05:52] LABS: BUN 33 mg/dl (7-24); CHLORIDE 104 mmol/L (98-107); CREATININE 1.44 mg/dL (0.70-1.30); PHOSPHOROUS 3.8 mg/dL (2.5-4.9); POTASSIUM 3.8 mmol/L (3.5-5.1); SODIUM 139 mmol/L (136-145)
[2018-01-25 08:00] VITALS: BP 123/80
[2018-01-25 12:00] VITALS: BP 113/73
[2018-01-25 16:00] VITALS: BP 116/69
[2018-01-25 20:00] VITALS: BP 107/69
[2018-01-26] VITALS: BP 109/65
[2018-01-26 04:00] VITALS: BP 108/65
[2018-01-26 05:38] LABS: BUN 22 mg/dl (7-24); CHLORIDE 106 mmol/L (98-107); CREATININE 0.86 mg/dL (0.70-1.30); PHOSPHOROUS 3.1 mg/dL (2.5-4.9); POTASSIUM 3.3 mmol/L (3.5-5.1); SODIUM 140 mmol/L (136-145)
[2018-01-26 05:41] LABS: ALBUMIN 1.9 gm/dl (3.1-4.5); ALKALINE PHOSPHATASE 121 U/L (45-117); BUN 24 mg/dl (7-24); CHLORIDE 104 mmol/L (98-107); CREATININE 0.93 mg/dL (0.70-1.30); POTASSIUM 3.2 mmol/L (3.5-5.1); SGOT/AST 18 IU/L (3-35); SGPT/ALT 25 U/L (12-78); SODIUM 139 mmol/L (136-145); TOTAL PROTEIN 5.3 gm/dL (6.4-8.2)
[2018-01-26 06:18] LABS: BASO % 0.2 % (0.0-1.0); EOS # 0.1 10*3/uL (0.0-0.4); EOS % 0.6 % (1.0-4.0); HEMATOCRIT 27.8 % (42.0-52.0); HEMOGLOBIN 9.1 g/dl (14.0-18.0); LYMPH # 0.8 10*3/uL (1.3-4.4); LYMPH % 5.5 % (27.0-41.0); MEAN CELL VOLUME 85.3 fl (80.0-94.0); MEAN CORPUSCULAR HGB 27.9 pg (27.0-31.0); MEAN CORPUSCULAR HGB CONC 32.7 g/dl (33.0-37.0); MONO # 1.3 10*3/uL (0.1-1.0); MONO % 9.3 % (3.0-9.0); NEUT % 83.8 % (47.0-73.0); PLATELET COUNT AUTOMATED 539 10*3/uL (130-400); RED BLOOD COUNT 3.26 10*6/uL (4.50-5.90); RED CELL DISTRI WIDTH 15.5 % (0-14.5); WHITE BLOOD COUNT 14.3 10*3/uL (4.8-10.8)
[2018-01-26 08:00] VITALS: BP 129/78
[2018-01-26 12:00] VITALS: BP 117/67
[2018-01-26 16:00] VITALS: BP 129/75
[2018-01-26 20:00] VITALS: BP 120/68
[2018-01-27] VITALS: BP 126/70
[2018-01-27 08:00] VITALS: BP 110/75
[2018-01-27 12:00] VITALS: BP 103/62
[2018-01-27 16:00] VITALS: BP 104/74
[2018-01-27 20:00] VITALS: BP 122/79
[2018-01-28] VITALS: BP 111/76
[2018-01-28 06:52] LABS: BASO % 0.2 % (0.0-1.0); EOS # 0.1 10*3/uL (0.0-0.4); EOS % 0.7 % (1.0-4.0); HEMATOCRIT 27.5 % (42.0-52.0); HEMOGLOBIN 9.1 g/dl (14.0-18.0); LYMPH % 8.2 % (27.0-41.0); MEAN CELL VOLUME 85.1 fl (80.0-94.0); MEAN CORPUSCULAR HGB 28.2 pg (27.0-31.0); MEAN CORPUSCULAR HGB CONC 33.1 g/dl (33.0-37.0); MEAN PLATELET VOLUME 9.6 fl (9.6-12.3); MONO # 1.2 10*3/uL (0.1-1.0); MONO % 10.6 % (3.0-9.0); NEUT # 9.2 10*3/uL (2.3-7.9); NEUT % 79.4 % (47.0-73.0); PLATELET COUNT AUTOMATED 632 10*3/uL (130-400); RED BLOOD COUNT 3.23 10*6/uL (4.50-5.90); RED CELL DISTRI WIDTH 15.7 % (0-14.5); WHITE BLOOD COUNT 11.6 10*3/uL (4.8-10.8)
[2018-01-28 07:14] LABS: BUN 15 mg/dl (7-24); CHLORIDE 106 mmol/L (98-107); CREATININE 0.87 mg/dL (0.70-1.30); POTASSIUM 3.3 mmol/L (3.5-5.1); SODIUM 140 mmol/L (136-145)
[2018-01-28 08:00] VITALS: BP 113/66
[2018-01-28 12:00] VITALS: BP 100/61
== END 2018-01-28 12:40 | disposition other institution (70) | DRG 853 ==
LOC: ED 20:34 → ICCU 22:39 → EDHOLD 22:39 → 5E 22:39 → ICCU 01-14 11:06 → 5E 01-26 13:11
PROVIDERS: Internal Medicine; Internal Medicine Critical Care Medicine; Physician Assistant; Student in an Organized Health Care Education/Training Program; Surgery
PROC: 5A1955Z Respiratory Ventilation, Greater than 96 Consecutive Hours (ICD-10-PCS; principal; 2018-01-14)
PROC: 02HV33Z Insertion of Infusion Device into Superior Vena Cava, Percutaneous Approach (ICD-10-PCS; principal; 2018-01-14)
PROC: 0BH17EZ Insertion of Endotracheal Airway into Trachea, Via Natural or Artificial Opening (ICD-10-PCS; principal; 2018-01-14)
PROC: 0JQ80ZZ Repair Abdomen Subcutaneous Tissue and Fascia, Open Approach (ICD-10-PCS; principal; 2018-01-14)
PROC: 5A09357 Assistance with Respiratory Ventilation, Less than 24 Consecutive Hours, Continuous Positive Airway Pressure (ICD-10-PCS; 2018-01-19)
DX: A41.9 Sepsis, unspecified organism (principal); E43 Unspecified severe protein-calorie malnutrition; K65.0 Generalized (acute) peritonitis; J96.01 Acute respiratory failure with hypoxia; K56.7 Ileus, unspecified; E87.1 Hypo-osmolality and hyponatremia; I47.1 Supraventricular tachycardia; I48.92 Unspecified atrial flutter; T81.30XA Disruption of wound, unspecified, initial encounter; E87.3 Alkalosis; J98.11 Atelectasis; K91.89 Other postprocedural complications and disorders of digestive system; T81.42XA Infection following a procedure, deep incisional surgical site, initial encounter; E87.6 Hypokalemia; B95.62 Methicillin resistant Staphylococcus aureus infection as the cause of diseases classified elsewhere; R65.20 Severe sepsis without septic shock; Y83.8 Other surgical procedures as the cause of abnormal reaction of the patient, or of later complication, without mention of misadventure at the time of the procedure; D64.9 Anemia, unspecified; D47.3 Essential (hemorrhagic) thrombocythemia; E83.41 Hypermagnesemia; R74.0 Nonspecific elevation of levels of transaminase and lactic acid dehydrogenase [LDH]; E87.8 Other disorders of electrolyte and fluid balance, not elsewhere classified; R73.9 Hyperglycemia, unspecified; R82.4 Acetonuria; B96.1 Klebsiella pneumoniae [K. pneumoniae] as the cause of diseases classified elsewhere; K21.9 Gastro-esophageal reflux disease without esophagitis; E78.5 Hyperlipidemia, unspecified; N40.0 Benign prostatic hyperplasia without lower urinary tract symptoms; M10.9 Gout, unspecified; J44.9 Chronic obstructive pulmonary disease, unspecified; R19.7 Diarrhea, unspecified; R53.83 Other fatigue; K59.00 Constipation, unspecified; I10 Essential (primary) hypertension; E66.8 Other obesity; Z79.899 Other long term (current) drug therapy; Z79.82 Long term (current) use of aspirin; Z83.3 Family history of diabetes mellitus; Z82.49 Family history of ischemic heart disease and other diseases of the circulatory system; Z90.49 Acquired absence of other specified parts of digestive tract; Z80.1 Family history of malignant neoplasm of trachea, bronchus and lung; Z84.89 Family history of other specified conditions; Z83.6 Family history of other diseases of the respiratory system; Z80.9 Family history of malignant neoplasm, unspecified; Y92.89 Other specified places as the place of occurrence of the external cause; Z68.32 Body mass index [BMI] 32.0-32.9, adult